=== PATIENT | male | born 2000 | race American Indian/Alaskan Native ===

== ENCOUNTER 2020-10-17 12:33 | Emergency (ER) | payer MEDICAID, SELFPAY ==
[2020-10-17 12:38] VITALS: BP 118/81; PULSE 66; RESP 18; TEMP 36.6; O2SAT 97; BMI 19.2
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
--- NOTE | 2020-10-17 12:54 | XR_ITS ---
EXAMINATION: XR RIBS, RIGHT CLINICAL INFORMATION: Pain. Trauma. COMPARISON: None TECHNIQUE: 2 views of the right ribs and one view of the chest were obtained. FINDINGS: The cardiac and mediastinal contours are normal. The lungs are clear. There is no pleural effusion or pneumothorax. No rib fracture is seen. There is mild curvature of the lower thoracic and upper lumbar spine to the left. XR/XR ribs RT min 3V w CXR1V IMPRESSION: No evidence for acute disease in the chest. No rib fracture seen.
[2020-10-17] MEDS: Magnesium Hydrox/Alum Hydrox 30 ML ORAL.SUSP PO (13:02)
--- NOTE | 2020-10-17 13:04 | PC.NURSE ---
pt seen by provider, medicated per emar, tolerating po w/o issue. changed into hospital attire awaiting xray.
--- NOTE | 2020-10-17 14:19 | MHC.CARE ---
CARE Team met with patient in C room 1 regarding homelessness/resources. He reported having recently moving back to [facility] from [place], spent two nights in a hotel, has no money to stay another night, no local family or friends. Patient is already well connected to [facility] in [place], told provider that he does not want to go to a [place], prefers to be outside. Patient said he has an intake at [facility] tomorrow and waiting for [place] psychiatry appointment, stated he will self present to [facility] in [place] where he may be able to stay the night, has been there before. Patient denied being in a mental health crisis at this time, gave # for [facility]. Gave information about housing resources (he was familiar with most) and a local [place] facility list. Provider updated
[2020-10-17 14:58] VITALS: BP 122/78; PULSE 72; RESP 14; TEMP 36.6; O2SAT 100
--- NOTE | 2020-10-17 15:36 | PC.NURSE ---
pt very resistant to being discharged, provider at bedside to explain results of workup. pt complains i still cant walk, i didnt even get one thing addressed today . this rn reeducating pt on process of evaluation and results, provider at bedside att. after conversation, plan for basic blood labs and ua spec. pt also sts its painful and i cant swallow anything, i havent eaten in weeks . pt asked about the small portion of sandwich remaining in room, this rn inquiring where the sandwich went if he cannot swallow. pt sts that hes been trying . ambulatory in room w steady gait to void in urinal.
[2020-10-17 15:59] LABS: Basophils Percent Auto 0.4 % (0-2); Eosinophils Absolute Auto 0.1 X10*3/uL (0.0-0.4); Eosinophils Percent Auto 1.3 % (0-4); Hematocrit 52.2 % (42-52); Hemoglobin 18.2 g/dl (14.0-18.0); Imm Gran Abs Auto 0.01 X10*3/uL (0.00-0.03); Imm Gran Pct Auto 0.1 % (0.0-0.4); Lymphocytes Absolute Auto 2.2 X10*3/uL (1.2-4.9); Lymphocytes Percent Auto 31.6 % (20-40); Mean Corpuscular HGB Conc 34.9 g/dl (31.0-36.0); Mean Corpuscular Hemoglobin 30.1 pg (27.0-33.0); Mean Corpuscular Volume 86.3 fL (80-98); Mean Platelet Volume 9.6 fL (9.4-12.4); Monocytes Absolute Auto 0.7 X10*3/uL (0.1-1.2); Monocytes Percent Auto 9.3 % (2-11); Neutrophils Absolute Auto 4.1 X10*3/uL (2.0-8.3); Neutrophils Percent Auto 57.3 % (45-73); Platelet Count 257 X10*3/uL (160-400); Red Blood Count 6.05 X10*6/uL (4.60-5.80); Red Cell Distribution Width 12.7 % (11.0-16.0); White Blood Count 7.1 X10*3/uL (4.8-10.8)
[2020-10-17 16:00] LABS: MANUAL DIFF FLAG NO
--- NOTE | 2020-10-17 16:15 | PC.NURSE ---
per clinic charge nurse, pt has been calling 911 and requesting a new doctor as evidenced by [facility] calling and asking to have the pt stop calling 911. this rn, clinic charge nurse and chris log rider at bedside to speak w pt, security stand by. pt sts he has not recieved any help with anything at all . pt educated about test done today, necessity of requested services on emergent basis. pt had blood work and had attempted ua spec. pt sts he cannot walk but has been seen by multiple staff ambulating w steady gait. pt offered discharge paperwork and instructions, when given privacy to get changed pt called 911 again. security at bedside to assist in departing discharged pt. pt very resistant and physically making effort to not leave. pt assisted to wheelchair and brought to ed entrance.
[2020-10-17 16:34] LABS: Alanine Aminotransferase 16 U/L (0-40); Albumin Level 5.5 g/dL (3.5-5.0); Alkaline Phosphatase 63 U/L (39-117); Anion Gap 12 (12-20); Aspartate Amino Transferase 25 U/L (5-37); Bilirubin Total 1.1 mg/dL (0.0-1.0); Blood Urea Nitrogen 19 mg/dL (9-16); Calcium 10.4 mg/dL (8.4-10.2); Carbon Dioxide 30 mmol/L (22-29); Chloride 99 mmol/L (96-108); Creatinine Clr Calc Pharmacy 80.5; Estimated Glomerular Filt Rate > 60; Glucose Random 97 mg/dL (60-115); Potassium 3.9 mmol/l (3.3-5.1); Sodium 137 mmol/L (135-145); Total Protein 8.7 g/dL (6.5-8.0)
== END 2020-10-17 16:28 | disposition home or self-care (01) ==
PROVIDERS: Nurse Practitioner Primary Care; Emergency Provider Emergency Medicine Emergency Medical Services
DX: S20.211A Contusion of right front wall of thorax, initial encounter (principal); R07.89 Other chest pain; W01.0XXA Fall on same level from slipping, tripping and stumbling without subsequent striking against object, initial encounter; Y93.9 Activity, unspecified; Y92.9 Unspecified place or not applicable; Y99.9 Unspecified external cause status; F17.200 Nicotine dependence, unspecified, uncomplicated; Z71.6 Tobacco abuse counseling
CPT/HCPCS: 36415; 71101; 80053; 85025; 99284

== ENCOUNTER 2023-07-15 03:30 | Emergency (ER) | payer MEDICAID, SELFPAY ==
[2023-07-15 03:33] VITALS: BP 116/60; BP 120/83; PULSE 66; RESP 18; TEMP 36.4; O2SAT 98; O2SAT 99; BMI 22.9
--- NOTE | 2023-07-15 03:45 | PC.NURSE ---
Pt A&Ox4, reports 7/10 chronic left hand pain. Reports walking for four hours prior to arrival, causing SOB and hand pain. States I am homeless, its cold outside and I have to carry a tote and this bag around . Belongings placed in decon by security. Pt speaking in full sentences, equal and non labored breathing, SpO2 98% on RA, RR 18, lung sounds clear. No apparent distress. Pt aware of plan.
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
[2023-07-15 05:57] VITALS: BP 113/80; PULSE 61; RESP 16; TEMP 36.4; O2SAT 99
--- NOTE | 2023-07-15 07:31 | MHC.EDTECH ---
Breakfast was given to the patient and Due to his Diet, he didn't/couldn't eat anything. With Nurse we went to his belongings (Ollie) and gathered his Lunch box that contain hid food.
--- NOTE | 2023-07-15 07:43 | PC.NURSE ---
pt requesting varnisher and lunch bag from [facility]; obtained with security.
--- NOTE | 2023-07-15 11:15 | MHC.CM.ED ---
Received case management consult overnight. Patient is looking for usp and transportation help. Met with patient. Group Home and community resources provided to patient. Jose arrange for patient to go to work at [employer] in [place]. Patient, Yvette WHALEY and Stephanie TROY aware. Continue to monitor for d/c needs.
== END 2023-07-15 11:16 | disposition home or self-care (01) ==
PROVIDERS: Emergency Provider Emergency Medicine
DX: R53.1 Weakness (principal); Z72.89 Other problems related to lifestyle; Z60.8 Other problems related to social environment; Z59.00 Homelessness unspecified; F41.9 Anxiety disorder, unspecified; F32.A Depression, unspecified; F43.10 Post-traumatic stress disorder, unspecified; F12.90 Cannabis use, unspecified, uncomplicated
CPT/HCPCS: 99284

== ENCOUNTER 2023-08-19 15:15 | Outpatient (REF) | payer MEDICAID, SELFPAY ==
[2023-08-20 07:21] LABS: HIV AB/AG Nonreactive (Nonreactive); HIV Num 1 0.05 S/CO (0.00-0.99); ~HepC Num1 0.06 S/CO (0.00-0.79); ~Hepatitis C Antibody Nonreactive (Nonreactive)
[2023-08-20 07:41] LABS: Syphilis Screen Reactive (Nonreactive)
[2023-08-26 15:25] LABS: RPR Quantitative Non-Reactive (Nonreactive)
[2023-08-26 15:26] LABS: T.Pallidum Particle Agg Test Reactive (Nonreactive)
== END 2023-08-19 15:16 | disposition home or self-care (01) ==
LOC: HO.HHCL 15:15
PROVIDERS: Visit Provider Nurse Practitioner Primary Care
DX: Z11.3 Encounter for screening for infections with a predominantly sexual mode of transmission (principal)
CPT/HCPCS: 36415; 86592; 86780; 86803; 87389

== ENCOUNTER 2025-07-11 01:22 | Emergency (ER) | payer OTHER, SELFPAY ==
--- OUTSIDE RECORDS SUMMARY | 2025-07-10 16:27 | XMS_ITS | Encounter Summary ---
Author Organization [employer] [facility] Address [address] [place] [address] Care Team Providers Care Drawing Tender Name Role Phone Physician, Pcp Unknown Primary Care Provider Maritza vailable Reason for Visit * Reason Comments Headache Encounter Details Date Type Department Care Team ([facility] st Contact Info) Description 07/10/2025 4:27 PM EDT - 07/10/2025 6:55 PM EDT Emergency [facility] Emergency [address] [place] [address] Faraz Stroud MD [address] [facility] [address] [place] [address] Syncope and collapse (Primary Dx); [...] your primary care provider or at the [place] public health department. While you are taking these antibiotics you should not be having sexual intercourse as you may have a sexual transmitted infection. You should notify all of your sexual partners that they need to be tested and possibly treated for sexually transmitted infection. I recommend you use condoms to reduceyour risk of obtaining a sexually transmitted infection. [place] is a self reporting state to the registry of motor vehicles, you should not be driving or operating heavy machinery until you are cleared by your primary care provider. * Attachments The following attachments cannot be sent through Care Everywhere. * Antibiotics: General Info (Polish) documented in this encounter Medications at Time [...] iron, magnesium, selenium, zinc). 14 each 07/10/2025 documented in this encounter Discharge Disposition Disposition [...] of Systems Physical Exam ED Triage Vitals [07/10/25 1608] Temp Heart Rate Resp BP -- [...] MDM ED Course as of 07/11/25 0020 Tue Jul 10, 2025 183 EKG sinus rhythm with shortened HI interval, 78 bpm, HI interval 96 MS, QTc 442 MS, normal [...] be discharged home. I discussed the plan for outpatient doxycycline for STI treatment, refill of his epinephrine autoinjector, I encouraged himto come back to the ER for any [...] another syncopal episode while walking to the [facility]. Prior to the episode patient statedhe felt hot and sweaty. This is consistent with a vasovagal episode. EKG did show a shortened HI interval but no delta wave, no Brugada [...] loss of conscious to the registry of HASH [place] and then he should not be driving [...] Upcoming Encounters Date Type Department Care Team (Late st Contact Info) Description 07/18/2025 7:00 AM EDT Evaluation [address] [address] Jim Tineo, PT Pending Results Name Type Priority Associated Diagnoses Date /Time Chlamydia trachomatis and Neisseria gonorrhoeae molecular study Microbiology STAT 07/10/2025 5:30 PM EDT Rapid plasma reagin with reflex to titer Lab STAT 07/10/2025 5:38 PM EDT Scheduled Orders Name Type Priority Associated Diagnoses Orde r Schedule Chlamydia trachomatis and Neisseria gonorrhoeae molecular study Microbiology STAT STAT for 1 Occurrences starting 07/10/2025 until 07/10/2025 Rapid plasma reagin with reflex to titer Lab Routine Once for 1 Occurrences starting 07/10/2025 until 07/10/2025 documented as of this encounter Procedures Procedure Name Priority Date/Time Associated Diagnosis Comments ECG 12-LEAD STAT 07/10/2025 6:25 PM EDT TREPONEMA PALLIDUM ANTIBODY WITH REFLEX TO RPR AND PARTICLE AGGLUTINATION STAT 07/10/2025 5:38 PM EDT MAGNESIUM STAT Add-on 07/10/2025 5:38 PM EDT BASIC METABOLIC PANEL STAT Add-on 07/10/2025 5:38 PM EDT [id number], RSV, FLU A AND B QUALITATIVE RT-PCR, INTERNAL LAB STAT 07/10/2025 5:30 PM EDT documented in this encounter Results * 12-Lead ECG (07/10/2025 6:25 PM EDT) Pathologist [facility] Ventricular Rate ECG 78 BPM GEMUSE Atrial Rate 78 BPM GEMUSE P-R Interval 96 ms GEMUSE QRS Duration 92 ms GEMUSE Q-T Interval 388 ms GEMUSE QTc 442 ms GEMUSE P Wave [place] 33 degrees GEMUSE R [place] 56 degrees GEMUSE T [place] 51 degrees GEMUSE ECG Interpretation Poor data quality, interpretation may be adversely affected Sinus rhythm with short HI Minimal voltage criteria for LVH, may be normal variant Borderline ECG No previous ECGs available Confirmed by Luis Felipe GRACIA YUFENG ([id number]) on 07/10/2025 7:42:24 PM GEMUSE 07/10/2025 6:25 PM EDT 07/10/2025 7:42 PM EDT us Faraz Stroud MD ECG ORDERABLES Final Result Performing Organization Address City/[facility]/ZIP Co de Phone Number GEMUSE * Magnesium (07/10/2025 5:38 PM EDT) [facility] Magnesium 2.1 1.9 - 2.6 mg/dL LAB CHEMISTRY METHOD 07/10/2025 7:06 PM EDT [facility] Blood Venous blood specimen / Unknown Venipuncture / Unknown 07/10/2025 5:38 PM EDT 07/10/2025 6:00 PM EDT us Faraz Stroud MD LAB BLOOD ORDERABLES Final Resul t [facility] [address] [place] [address], [place] [phone] * Basic Metabolic Panel (BMP) (07/10/2025 5:38 PM EDT) [facility] Sodium 136 133 - 145 mmol/L LAB CHEMISTRY METHOD 07/10/2025 7:06 PM EDT [facility] Potassium 3.9 3.5 - 5.5 mmol/L LAB CHEMISTRY METHOD 07/10/2025 7:06 PM [facility] Chloride 105 96 - 110 mmol/L LAB CHEMISTRY METHOD 07/10/2025 7:06 PM [facility] CO2 25 21 - 32 mmol/L LAB CHEMISTRY METHOD 07/10/2025 7:06 PM [facility] Anion Gap 6 3 - 11 LAB CHEMISTRY METHOD 07/10/2025 7:06 PM [facility] Glucose 87 70 - 100 mg/dL LAB CHEMISTRY METHOD 07/10/2025 7:06 PM [facility] BUN 13 5 - 25 mg/dL LAB CHEMISTRY METHOD 07/10/2025 7:06 PM [facility] Creatinine 1.18 0.70 - 1.30 mg/dL LAB CHEMISTRY METHOD 07/10/2025 7:06 PM [facility] eGFR 87 >=60 mL/min/1. 73m2 LAB CHEMISTRY METHOD 07/10/2025 7:06 PM [facility] Comment:Calculation based on the Chronic Kidney Disease Epidemiology Collaboration (CKD-EPI) equation refit without adjustment for race. BUN/Creatinine Ratio 11.0 LAB CHEMISTRY METHOD 07/10/2025 7:06 PM [facility] Calcium 9.7 8.5 - 10.5 mg/dL LAB CHEMISTRY METHOD 07/10/2025 7:06 PM [facility] Blood Venous blood specimen / Unknown Venipuncture / Unknown 07/10/2025 5:38 PM EDT 07/10/2025 6:00 PM EDT us Faraz Stroud MD LAB BLOOD ORDERABLES Final Resul t [facility] [address] [place] [address], [place] [phone] * (ABNORMAL) Treponema pallidum antibody with reflex to RPR and particle agglutination (07/10/2025 5:38 PM EDT) Pathologist [facility] T. Pallidum Antibodies Positive( A) Negative LAB CHEMISTRY METHOD 07/10/2025 6:55 PM EDT [facility] Blood Venous blood specimen / Unknown Venipuncture / Unknown 07/10/2025 5:38 PM EDT 07/10/2025 6:00 PM EDT us Faraz Stroud MD LAB BLOOD ORDERABLES Final Resul t [facility] [address] [place] [address], * [id number], RSV, Influenza A and B qualitative RT-PCR (07/10/2025 5:30 PM EDT) [facility] Influenza A PCR Not Detected Not Detected LAB MICROBIOLOGY METHOD 07/10/2025 6:21 PM EDT [facility] Influenza B PCR Not Detected Not Detected LAB MICROBIOLOGY METHOD 07/10/2025 6:21 PM EDT [facility] RSV PCR Not Detected Not Detected LAB MICROBIOLOGY METHOD 07/10/2025 6:21 PM EDT [facility] SARS COV-2 Not Detected Not Detected LAB MICROBIOLOGY METHOD 07/10/2025 6:21 PM EDT [facility] Swab Nasopharyngeal structure / Unknown Non-blood Collection / Unknown 07/10/2025 5:30 PM EDT 07/10/2025 5:38 PM EDT Narrative [facility] - 07/10/2025 6:21 PM EDT Disclaimer: Testing was performed using the [employer] GeneXpert Xpress SARS-CoV-2 _Flu_RSV PLUS PCR assay. [...] for Healthcare providers can be found at https://www.fda.gov/media/062044/download. Fact sheet for Healthcare patients can be found at https://www.fda.gov/media/577650/download. us Faraz Stroud MD LAB MICROBIOLOGY - GENERAL ORDER CASEY Final Result [facility] ([facility]) [facility] [address] [place] [address], documented in this encounter Visit Diagnoses Diagnosis Syncope and collapse- Primary Viral illness Unspecified viral infection, in conditions classified elsewhere and of unspecified site STI (sexually transmitted infection) Unspecified venereal disease documented in this encounter Administered Medications Inactive [...] documented as of this encounter Care Teams Drawing Tender Relationship Specialty Start Date End Date Physician, Pcp Unknown PCP - General 07/10/25 documented as of this encounter
--- OUTSIDE RECORDS SUMMARY | 2025-07-11 00:30 | XMS_ITS | Encounter Summary ---
Author Organization [employer] [facility] Address [address] [place] [address] Care Team Providers Care Csr Retail Name Role Phone Physician, Pcp Unknown Primary Care Provider Maritza vailable Reason for Visit * Reason Comments Abnormal labs Encounter Details Date Type Department Care Team ([facility] st Contact Info) Description 07/11/2025 12:30 AM EDT - 07/11/2025 1:09 AM EDT Emergency [facility] Emergency [address] [place] [address] Faraz Stroud MD [address] [facility] [address] [place] [address] Discharge Disposition: Home or Self Care Social History Tobacco Use Types Packs/Day Years [...] Sign Reading Time Taken Comments Blood Pressure 150/97 07/11/2025 12:35 AM EDT Pulse 78 07/11/2025 12:35 AM EDT Temperature 36.7 C (98 F) 07/11/2025 12:35 AM EDT Respiratory Rate 16 07/11/2025 12:35 AM EDT Oxygen Saturation 97% 07/11/2025 12:35 AM EDT Inhaled Oxygen Concentration - - Weight - - Height - - Body Mass Index - - documented in this encounter Medications at Time of Discharge cyclobenzaprine (FLEXERIL) 10 mg tabletIndications:A cute right-sided thoracic back pain Take 1 tablet (10 mg total) by mouth at bedtime as needed for muscle spasms. 30 tablet 05/31/2025 5 doxycycline (VIBRAMYCIN) 100 mg capsule Take 1 [...] for nausea or vomiting. 8 tablet 03/23/2024 documented as of this encounter Discharge Disposition Disposition Code Departure Means Destination Home or Self Care documented in this encounter Progress Notes * Marry Ortiz RN - 07/11/2025 12:37 AM EDT Patient upset that he was called back for treatment stating I havent even slept . Patient refused a temp and walked out of the ER * Marry Ortiz RN - 07/11/2025 12:32 AM EDT Patient called back for abnormal results of an STD results documented in this encounter Plan of Treatment Upcoming Encounters Date Type Department Care Team (Late st Contact Info) Description 07/18/2025 7:00 AM EDT Evaluation [address] [address] Jim Tineo, PT documented as of this encounter Visit Diagnoses Not on filedocumented in this encounter Active and Recently Administered Medications Times are shown in EDT. Scheduled Medication Order 07/09/2025 07/10/2025 07/11/2025 penicillin G benzathine (BICILLIN-LA) IM injection 2.4 Million Units 2.4 Million Units, intramuscular, Once, On Wed07/11/25 at 0140, For 1 dose, For IM injection ONLY. Not to exceed 4 mL in one site of administration. CAUTION: For intramuscular injection ONLY. Complex administration instructions, see package insert or drug reference link., Indication: Sexually Transmitted Infection 0140 (Due) documented in this encounter Orders Medications Ordered That Jones ht Not Have Been Administered Count Last Ordered Date First Ordered Date penicillin G benzathine (BIC ILLIN-LA) IM injection 2.4 Million Units 1 07/11/2025 documented in this encounter Care Teams Csr Retail Relationship Specialty Start Date End Date Physician, Pcp Unknown PCP - General 07/10/25 documented as of this encounter
[2025-07-11 01:23] VITALS: BP 143/103; PULSE 82; RESP 16; TEMP 36.6; O2SAT 98; BMI 17.1
--- OUTSIDE RECORDS SUMMARY | 2025-07-11 01:42 | XMS_ITS | Clinical Summary ---
Author Organization [employer] Address [address] [place] [address] Care Team Providers Care Cio Name Role Phone Mini Encarnacion GELA Primary Care Provider [phone] Active Problems Problem Noted Date Diagnosed Date Hallucinations 09/07/2023 Homelessness 08/24/2023 Gastroesophageal reflux disease 08/17/2023 08/17/2023 Housing lack 08/17/2023 08/17/2023 Anxiety 06/27/2021 08/17/2023 Depressive disorder 06/27/2021 08/17/2023 Assessment & Plan (09/07/2023 8:19 AM EST): Assessment: Patient experiencing multiple symptoms that require further exploration. No risk for self-harm, SI, or HI. Reason for visit was to follow-up and assess current symptoms. A OP therapy referral was made to [place] on 08/23/2023. At this time Fidencio Huitron meets criteria for Visit Diagnoses: Problem List Items Addressed This Visit Other Anxiety Depressive disorder Housing lack Homelessness Hallucinations Patient ready to address current needs Yes Strengths include patient is in preparation stage PLAN: 1. Follow up with [facility]: Recommended for follow-up: As needed 2. Patient goal is obtain stable housing and improve his mental health 3. Behavioral Recommendations a. Engage in OP therapy once established b. Monitor symptoms c. Reach out to [facility] for additional support as needed Assessment & Plan (08/31/2023 8:11 AM EDT): Assessment: Patient presents with symptoms of depression as well as various other symptoms which at this time need further exploration. No risk for self-harm, SI, or HI. Reason for visit was to provided support for patient and connect him with services. OP therapy and psychopharmacology referral will be completed. At this time Fidencio Huitron meets criteria for Visit Diagnoses: Problem List Items Addressed This Visit Other Anxiety Relevant Orders Referral to Behavioral Health Depressive disorder - Primary Relevant Orders Referral to Behavioral Health Housing lack Homelessness Patient ready to address current needs Yes Strengths include resilience and being in preparation stage. PLAN: 1. Follow up with [facility]: Recommended for follow-up: Scheduled 2. Patient goal is to be connected with services/resources that will address all needs 3. Behavioral Recommendations a. Attend follow-up appointment b. Reach out to [facility] for additional support Immunizations Immunization Administration Dates Next Due DTaP, 5 pertussis antigens 02/15/2002,,1998,1998,0 1998 HPV, Quadrivalent 09/05/2014,01/25/2014,12/19/19 14 Hep B, Adolescent or Pediatric 1998,1997,1998 Hib (PRP-T) 05/28/1999,1998,1998 ,1998 IPV 02/15/2002,05/28/1999,1998 ,1998 Influenza, IIV3, injectable 09/05/2014 MMR 02/15/2002,03/27/1999 Meningococcal MCV4O 01/25/2014,01/23/2011 Tdap 03/10/2019,11/08/2008 Varicella 01/23/2011,03/27/1999 Social History Tobacco Use Types Packs/Day Years Used Date Smoking Tobacco: Never Smokeless Tobacco: Never Tobacco Cessation:Counseling Given: Not Answered Depression Answer Date Recorded Patient Health Questionnaire-9 Score 12 08/19/2023 Patient Health Questionnaire-9 Score 12 08/19/2023 Last PHQ-9: Questionnaire Data Not on file 1 Housing Stability Answer Date Recorded What is your housing situation today? I do not have housing (Staying with others, in a hotel, in a long-term, living outside on the street, on a beach, in a car, or in a park 08/19/[address] you li ve. Do you have problems with any of the following? None of the above 08/19/2023 Food Insecurity Answer Date Recorded Within the past 12 months, y ou worried that your food would run out before you got money to buy more: Sometimes True 2022 Within the past 12 months,th e food you bought just didn't last and you didn't have enough money to get more: Sometimes True 08/19/2023 Depression Answer Date Recorded Patient Health Questionnaire-2 Score 2 08/19/2023 Sex and Gender Information Value Date Recorded Sex Assigned at Male 08/31/2022 10:16 AM EDT Legal Sex Male 10:16 AM EDT Gender Identity Male 08/31/2022 10:16 AM EDT Sexual Orientation Straight 08/31/2022 10 :16 AM EDT Last Filed Vital Signs Vital Sign Reading Time Taken Comments Blood Pressure 119/75 08/19/2023 1:14 PM EDT Pulse 64 08/19/2023 1:14 PM EDT Temperature - - Respiratory Rate 14 08/19/2023 1:14 PM EDT Oxygen Saturation 98% 08/19/2023 1:14 PM EDT Inhaled Oxygen Concentration - - Weight 55.6 kg (122 lb 9.6 oz) 08/19/2023 1:14 P M EDT Height 175.3 cm (5' 9 ) 08/19/2023 1:14 PM EDT Body Mass Index 18.1 08/19/2023 1:14 PM EDT Plan of Treatment Health Maintenance Due Date Last Done Comments SDOH Screening 1998 Disability Screening 1998 Alcohol/Substance Use Screening 2010 Family Planning (PISQ) 2013 Depression Monitoring 02/18/2024 08/19/2023, 023 Tobacco Screening 08/19/2024 08/19/2023 COVID-19 Vaccine ( season) 2025 Influenza Vaccine (#1) 2025 09/05/2014 DTaP/Tdap/Td Vaccines (8 - Td or Tdap) 03/10/2029 03/10/2019, 11/08/2008, 02/15/2002, Additional history exists Zoster Vaccines (1 of 2) 01/25/2048 RSV Patients and Patients Aged 60 years or older (1 - 1-dose 75+ series) 2073 Hepatitis B Vaccines Completed 1998, 1998, 1998 HIB Vaccines Completed 05/28/1999, 11/1997, 1998, Additional history exists IPV Vaccines Completed 02/15/2002, 05/02, 1998, Additional history exists Meningococcal Vaccine Completed 01/25/2014, 011 HPV Vaccines Completed 09/05/2014, 12/31, 12/19/2013 Hepatitis C Screening Completed 08/19/2023, 020 HIV Screening Completed 12/10/2023, 08/01, 06/23/2022, Additional history exists Hepatitis A Vaccines Aged Out No long er eligible based on patient's age to complete this topic Meningococcal B Vaccine Aged Out No l onger eligible based on patient's age to complete this topic Pneumococcal Vaccine: Pediatrics (0 to 5 Years) and At-Risk Patients (6 to 49) Years Aged Out No longer eligible based on patient's age to complete this topic RSV under 20 months Aged Out No longe r eligible based on patient's age to complete this topic Rotavirus Vaccines Aged Out No longer eligible based on patient's age to complete this topic Procedures Procedure Name Priority Date/Time Associated Diagnosis Comments HEPATITIS C AB W/REFL TO HCV RNA, QN, PCR Routine 08/19/2023 3:20 PM EDT Routine screening for STI (sexually transmitted infection) HIV ANTIBODY/ANTIGEN ([place] DPH) Routine 08/19/2023 3:20 PM EDT from Last 3 Months or Most Recently Relevant to Health Maintenance Results * HIV Ab/Ag ([place] D[facility]) (08/19/2023 3:20 PM EDT) HIV AB/AG Nonreactive Nonreactive [facility] Comment:HIV-1 p24 Ag and/or HIV-1/HIV-2 Ab not detected.A test result that is nonreactive does not exclude thepossibility of exposure to or infection with HIV-1 and/orHIV-2. Nonreactive results in this assay for individualswith prior exposure to HIV-1 and/or HIV-2 may be due toantigen and antibody levels that are below the limit ofdetection of this assay.The [employer] HIV Ag/Ab Combo assay result andsupplemental assay results should be interpreted inconjunction with the patient's clinical presentation,history and other laboratory results. If the results areinconsistent with clinical evidence, additional testing issuggested to confirm the result. 08/19/2023 3:20 PM EDT 08/19/2023 3:54 PM EDT Mini Encarnacion [facility] BLOOD ORDERABLES Final Resul t Performing Organization Address [facility] Co de Phone Number [facility] [address] [place] [address] [phone] * Hepatitis C Antibody with Reflex to HCV, RNA, Quantitative, Real-Time PCR (08/19/2023 3:20 PM EDT) Hepatitis C Antibody Nonreactive Nonreactive [facility] Comment:Antibodies to HCV no t detected; does not exclude early acuteHCV infection. Blood Venous blood specimen / Unknown 08/19/2023 3:20 PM EDT 08/19/2023 3:54 PM EDT Mini Encarnacion [facility] BLOOD ORDERABLES Final Resul t Performing Organization Address [facility] Co de Phone Number [facility] [address] [place] [phone] from Last 3 Months or Most Recently Relevant to Health Maintenance [facility] Care Teams Cio Relationship Specialty Start Date End Date Mini Encarnacion ANP [address] [place] [phone] PCP - General Family Medicine 07/19/23
--- OUTSIDE RECORDS SUMMARY | 2025-07-11 01:42 | XMS_ITS | Encounter Summary ---
Author Organization Formerly [facility] Address [address] [place] [address] Care Team Providers Care Supervisor Joiners Name Role Phone Stacy Tello Primary Care Provider [phone] Evelia AldrichW Unavailable [phone] Pcp, No Primary Care Provider UnavailJayna Gallegos LPC Unavailable Encounter Details Date Type Department Care Team (Late st Contact Info) Description 01/27/2019 Scanned Document [address] [phone] Provider, Ry, [address] [place] [address] Social History Tobacco Use Types Packs/Day Years Used Date Smoking Tobacco: Never Smokeless Tobacco: Never Alcohol Use Standard Drinks/Week Comments No 0 (1 standard drink = 0.6 oz pur e alcohol) AUDIT-C Answer Date Recorded Frequency of Alcohol Consumption Never 11/02/2018 Average Number of Drinks Not on file 019 Frequency of Binge Drinking Not on file 12/2018 Sex and Gender Information Value Date Recorded Sex Assigned at Male 03/27/2023 2:11 AM EDT Legal Sex Male 12:26 PM EST Gender Identity Male 03/27/2023 2:11 AM EDT Sexual Orientation Heterosexual (straight) 03/27 2:11 AM EDT documented as of this encounter Plan of Treatment Not on file documented as of this encounter Visit Diagnoses Not on filedocumented in this encounter Care Teams Supervisor Joiners Relationship Specialty Start Date End Date Stacy Tello PA [address] [facility] [address] [place] [address] PCP - General Internal Medicine 01/24/19 11/03/19 Pcp, No PCP - General General Medicine 11/19/19 Evelia Aldrich LCSW Needs valid address Investigation Lieutenant Social Work 01/26/19 02/09/22 Jayna Rosario LPC [address] [place] [address] Investigation Lieutenant Clinical Social Work 10/06/24 documented as of this encounter
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
--- OUTSIDE RECORDS SUMMARY | 2025-07-11 01:42 | XMS_ITS | Clinical Summary ---
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 Name Role Phone Physician, Pcp Unknown Primary Care Provider Maritza vailable Allergies Active Allergy Reactions Criticality Noted Date Comments Apple 03/23/2024 Aspirin 03/23/2024 Does not know [place] And Derivatives 03/23/2024 Acetaminophen-Caffeine 03/23/2024 Pain and bleeding Ibuprofen 03/23/2024 States pain and bleeding Milk Containing Products (Dairy) 03/23/2024 Peas 07/10/2025 Pork Derived (Porcine) 03/23/2024 Medications ondansetron ODT (ZOFRAN-ODT) 8 mg disintegrating tabletIndications :Nausea Dissolve 1 tablet (8 mg total) on top of the tongue every 8 (eight) hours if needed for nausea or vomiting. 8 tablet 03/23/20 24 Active cyclobenzaprine (FLEXERIL) 10 mg tabletIndications :Acute right-sided thoracic back pain Take 1 tablet (10 mg total) by mouth at bedtime as needed for muscle spasms. 30 tablet 05/31/20 25 2024 Active EPINEPHrine (EPIPEN) 0.3 mg/0.3 mL injection Inject 0.3 mL (0.3 mg total) into the thigh if needed for anaphylaxis. 1 each 07/10/20 25 Active doxycycline (VIBRAMYCIN) 100 mg capsule Take 1 capsule (100 mg total) by mouth 2 (two) times a day for 14 days. Take with at least 8 ounces (large glass) of water, do not lie down for 30 minutes after. Administer 2 hours before or after multivitamins , antacids, or other products containing polyvalent cations (i.e., calcium, iron, magnesium, selenium, zinc). 14 each 07/11/20 25 2024 Active doxycycline (VIBRAMYCIN) 100 mg capsule Take 1 capsule (100 mg total) by mouth 2 (two) times a day for 7 days. Take with at least 8 ounces (large glass) of water, do not lie down for 30 minutes after. Administer 2 hours before or after multivitamins , antacids, or other products containing polyvalent cations (i.e., calcium, iron, magnesium, selenium, zinc). 14 each 07/10/20 25 2024 Discontinued Encounters Date Type Department Care Team Description 07/11/2025 12:30 AM EDT - 07/11/2025 1:09 AM EDT [facility] Emergency [address] [place] [phone] Faraz Stroud MD Discharge Disposition: Home or Self Care 07/10/2025 4:27 PM EDT - 07/10/2025 6:[address] [facility] Emergency [address] [place] [phone] Faraz Stroud MD Syncope and collapse (Primary Dx); Viral illness; STI (sexually transmitted infection) Discharge Disposition: Left Against Medical Advice 05/31/2025 1:30 PM EDT Office Visit Walk[facility]In [facility] - [address] [phone] Erendira Cook NP Acute right-sided thoracic back pain (Primary Dx) from Last 3 Months Social History Tobacco Use Types Packs/Day Years Used Date Smoking Tobacco: Some Days Cigarettes Smokeless Tobacco: Never Tobacco Cessation:Ready to Q uit: Not Asked; Counseling Given: Not Answered Comments:Smokes socially Sex and Gender Information Value Date Recorded Sex Assigned at Not on file Legal Sex Male 12:25 PM EST Gender Identity Not on file Sexual Orientation Not on file Obstetrics History Last Filed Vital Signs Vital Sign Reading [...] Mass Index 16.64 07/10/2025 4:08 PM EDT Plan of Treatment Upcoming Encounters Date Type Department Care Team (Late st Contact Info) Description 07/18/2025 7:00 AM EDT Evaluation [address] [phone] Jim Tineo, PT Health Maintenance Due Date Last Done Comments Pneumococcal Vaccine: Pediatrics (0 to 5 Years) and At-Risk Patients (6 to 49 Years) (1 of 2 - PCV) 2017 HIV Screening 09/29/2022 Social Influencers of Health Screening 09/29/2022 Depression Screening 11/01/2024 COVID-19 Vaccine (3 - season) 2025 01/21/2021, 12/24/2020 Influenza Vaccine (#1) 2025 09/05/2014 Cholesterol Screening (Lipid Panel) 06/23/2027 06/23/2022 DTaP,Tdap,and Td Vaccines (8 - Td or Tdap) 03/10/2029 03/10/2019, 11/08/2008, 02/15/2002, Additional history exists Hepatitis B Vaccines Completed 1998, 1998, 1998 HIB Vaccines Completed 05/28/1999, 11/1997, 1998, Additional history exists IPV Vaccines Completed 02/15/2002, 05/02, 1998, Additional history exists MMR Vaccines Completed 02/15/2002, 03/27/1999 Varicella Vaccines Completed 01/23/2011, 03/27/1999 Meningococcal ACWY Vaccine Completed 01/25/2014, HPV Vaccines Completed 09/05/2014, 12/31, 12/19/2013 Hepatitis C Screening Completed 08/19/2023, 022 Hepatitis A Vaccines Aged Out No long er eligible based on patient's age to complete this topic Meningococcal B Vaccine Aged Out No l onger eligible based on patient's age to complete this topic RSV Immunization Patients Under 20 months Aged Out No longer eligible based on patient's age to complete this topic Procedures Procedure Name Priority Date/Time Associated Diagnosis Comments ECG 12-LEAD STAT 07/10/2025 6:25 PM EDT MAGNESIUM STAT Add-on 07/10/2025 5:38 PM EDT BASIC METABOLIC PANEL STAT Add-on 07/10/2025 5:38 PM EDT TREPONEMA PALLIDUM ANTIBODY WITH REFLEX TO RPR AND PARTICLE AGGLUTINATION STAT 07/10/2025 5:38 PM EDT [id number], RSV, FLU A AND B QUALITATIVE RT-PCR, INTERNAL LAB STAT 07/10/2025 5:30 PM EDT from Last 3 Months Results * 12-Lead ECG (07/10/2025 6:25 PM EDT) Ventricular Rate ECG 78 BPM GEMUSE Atrial Rate 78 BPM GEMUSE P-R Interval 96 ms GEMUSE QRS Duration 92 ms GEMUSE Q-T Interval 388 ms GEMUSE QTc 442 ms GEMUSE P Wave [place] 33 degrees GEMUSE R [place] 56 degrees GEMUSE T [place] 51 degrees GEMUSE ECG Interpretation Poor data quality, interpretation may be adversely affected Sinus rhythm with short FL Minimal voltage criteria for LVH, may be normal variant Borderline ECG No previous ECGs available Confirmed by Luis Felipe GRACIA YUFENG ([id number]) on 07/10/2025 7:42:24 PM GEMUSE 07/10/2025 6:25 PM EDT 07/10/2025 7:42 PM EDT us Faraz Stroud MD ECG ORDERABLES Final Result GEMUSE * (ABNORMAL) Treponema pallidum antibody with reflex to RPR and particle agglutination (07/10/2025 5:38 PM EDT) [facility] T. Pallidum Antibodies Positive( A) Negative LAB CHEMISTRY METHOD 07/10/2025 6:[address] [facility] Blood Venous blood specimen / Unknown Venipuncture / Unknown 07/10/2025 5:38 PM EDT 07/10/2025 6:00 PM EDT us Faraz Stroud MD LAB BLOOD ORDERABLES Final Resul t Performing Organization Address [facility] Co de Phone Number [facility] [address] [place] [address], [place] [phone] * Magnesium (07/10/2025 5:38 PM EDT) [facility] Magnesium 2.1 1.9 - 2.6 mg/dL LAB CHEMISTRY METHOD 07/10/2025 7:[address] [facility] Blood Venous blood specimen / Unknown Venipuncture / Unknown 07/10/2025 5:38 PM EDT 07/10/2025 6:00 PM EDT us Faraz Stroud MD LAB BLOOD ORDERABLES Final Resul t Performing Organization Address [facility]/ZIP Co de Phone Number [facility] [address] [place] [address], [place] [phone] * Basic Metabolic Panel (BMP) (07/10/2025 5:38 PM EDT) [facility] Sodium 136 133 - 145 mmol/L LAB CHEMISTRY METHOD 07/10/2025 7:[address] [facility] Potassium 3.9 3.5 - 5.5 mmol/L LAB CHEMISTRY METHOD 07/10/2025 7:[address] [facility] Chloride 105 96 - 110 mmol/L LAB CHEMISTRY METHOD 07/10/2025 7:[address] [facility] CO2 25 21 - 32 mmol/L LAB CHEMISTRY METHOD 07/10/2025 7:[address] [facility] Anion Gap 6 3 - 11 LAB CHEMISTRY METHOD 07/10/2025 7:[address] [facility] Glucose 87 70 - 100 mg/dL LAB CHEMISTRY METHOD 07/10/2025 7:[address] [facility] BUN 13 5 - 25 mg/dL LAB CHEMISTRY METHOD 07/10/2025 7:[address] [facility] Creatinine 1.18 0.70 - 1.30 mg/dL LAB CHEMISTRY METHOD 07/10/2025 7:[address] [facility] eGFR 87 >=60 mL/min/1. 73m2 LAB CHEMISTRY METHOD 07/10/2025 7:[address] [facility] Comment:Calculation based on the Chronic Kidney Disease Epidemiology Collaboration (CKD-EPI) equation refit without adjustment for race. BUN/Creatinine Ratio 11.0 LAB CHEMISTRY METHOD 07/10/2025 7:[address] [facility] Calcium 9.7 8.5 - 10.5 mg/dL LAB CHEMISTRY METHOD 07/10/2025 7:[address] [facility] Blood Venous blood specimen / Unknown Venipuncture / Unknown 07/10/2025 5:38 PM EDT 07/10/2025 6:00 PM EDT us Faraz Stroud MD LAB BLOOD ORDERABLES Final Resul t [facility] [address] [place] [address], * [id number], RSV, Influenza A and B qualitative RT-PCR (07/10/2025 5:30 PM EDT) Influenza A PCR Not Detected Not Detected LAB MICROBIOLOGY METHOD 07/10/2025 6:[address] [facility] Influenza B PCR Not Detected Not Detected LAB MICROBIOLOGY METHOD 07/10/2025 6:[address] [facility] RSV PCR Not Detected Not Detected LAB MICROBIOLOGY METHOD 07/10/2025 6:[address] [facility] SARS COV-2 Not Detected Not Detected LAB MICROBIOLOGY METHOD 07/10/2025 6:[address] [facility] Swab Nasopharyngeal structure / Unknown Non-blood Collection / Unknown 07/10/2025 5:30 PM EDT 07/10/2025 5:[address] [facility] - 07/10/2025 6:21 PM EDT Disclaimer: Testing was performed using the [employer] GeneXpert Xpress SARS-CoV-2 _Flu_RSV PLUS PCR assay. [...] for Healthcare providers can be found at https://www.fda.gov/media/139134/download. Fact sheet for Healthcare patients can be found at https://www.fda.gov/media/497292/download. Faraz Stroud MD LAB MICROBIOLOGY - GENERAL ORDER CASEY Final Result [facility] [address] [place] [address], from Last 3 Months Insurance [facility] [employer] Care Teams Cottage Cheese Maker Relationship Specialty Start Date End Date Physician, Pcp Unknown PCP - General 07/10/25
--- OUTSIDE RECORDS SUMMARY | 2025-07-11 01:42 | XMS_ITS | Encounter Summary ---
Author Organization [facility] Address [address] [place] [address] Care Team Providers Care Practice Physician Name Role Phone Evelia Aldrich LCSW Unavailable [phone] Pcp, No Primary Care Provider Unavailabl e Jayna Rosario LPC Unavailable Encounter Details Date Type Department Care Team (Late st Contact Info) Description 12/18/2019 Scanned Document [facility] EMERGENCY MED SCAN Emergency Medicine, Scan Social History Tobacco Use Types Packs/Day Years Used Date Smoking Tobacco: Former Smokeless Tobacco: Never Alcohol Use Standard Drinks/Week [...] on filedocumented in this encounter Care Teams Practice Physician Relationship Specialty Start Date End Date Pcp, No PCP - General General Medicine 11/19/19 Evelia Aldrich LCSW Needs valid address Automation Test Developer Social Work 01/26/19 02/09/22 Jayna Rosario LPC [address] [place] [address] Automation Test Developer Clinical Social Work 10/06/24 documented as of this encounter
--- OUTSIDE RECORDS SUMMARY | 2025-07-11 01:42 | XMS_ITS | Clinical Summary ---
Author Organization [facility] Address [address] [place] [address] Care Team Providers Care Lap Polisher Name Role Phone Pcp, No Primary Care Provider Jayna Mathews DEHYDROGENATION SUPERVISOR Unavailable [phone] Allergies Active Allergy Reactions Criticality Noted Date Comments Bioflavonoids Unknown/Patient and Family Unable to Define Medium 01/18/2019 [place] Rash/Dermatitis Low 12/16/2018 Corylus Rash/Dermatitis Low 12/16/2018 Tilactase Unknown/Patient and Family Unable to Define Medium 01/01/2019 Iesha Nut Hives Medium 01/18/2019 Lactose Unknown/Patient and Family Unable to Define Medium 01/18/2019 Nuts Unknown/Patient and Family Unable to Define Medium 01/01/2019 Peanut Oil Anaphylaxis High 09/05/2020 Pork (Porcine) Protein Hives Medium 09/05/2020 Medications * This document contains information received from the source organization and may not represent a complete record from that organization. SUPPLY DME MISCIndications:C hronic back pain, unspecified back location, unspecified back pain laterality Back brace for chronic back pain 1 supply 01/25/20 19 Active senna-docusate (sennosides-docus ate sodium) 8.6-50 MG Take 2 tablets by mouth daily. Active Pseudoephedrine-g uaiFENesin 60-375 MG tablet Take 1 tablet by mouth 2 (two) times a day. 20 tablet 11/19/19 20 Active Thiamine HCl (VITAMIN B-1 PO) Take by mouth. Active EPINEPHrine 0.3 mg/0.3 mL IJ auto-injection Inject 0.3 mL (0.3 mg total) into the shoulder, thigh, or buttocks once as needed for anaphylaxis. 3 each 11/22/19 Active predniSONE (DELTASONE) 20 MG tablet Take 2 tablets (40 mg total) by mouth daily. Start tomorrow, 1st dose given during encounter 8 tablet 11/22/19 Active ibuprofen (MOTRIN) 800 mg tablet Take 1 tablet (800 mg total) by mouth 3 (three) times a day as needed for mild pain (pain). 20 tablet 12/18/19 22 Active amoxicillin (AMOXIL) 500 MG capsule Take 1 capsule (500 mg total) by mouth 3 (three) times a day. Stop medication if rash develops or if other side effects occur 30 capsule 12/18/19 Active dicyclomine (BENTYL) 10 MG capsule Take 1-2 capsules (10-20 mg total) by mouth 4 times daily (every 6 hours) as needed for cramping. 12 capsule 09/03/20 Active famotidine (PEPCID) 20 MG tablet Take 1 tablet (20 mg total) by mouth 2 (two) times a day. 14 tablet 11/12/19 25 Active ondansetron (ZOFRAN-ODT) 4 MG disintegrating tablet Take 1 tablet (4 mg total) by mouth 3 times daily (every 8 hours) as needed for nausea or vomiting. Place tablet on tongue to dissolve. 10 tablet 11/12/19 25 Active ibuprofen (MOTRIN) 600 MG tablet Take 1 tablet (600 mg total) by mouth every 6 (six) hours. 30 tablet 02/05/20 25 Active ondansetron (ZOFRAN-ODT) 4 MG disintegrating tablet Take 1 tablet (4 mg total) by mouth 3 times daily (every 8 hours) as needed for nausea or vomiting. Place tablet on tongue to dissolve. 10 tablet 02/05/20 25 Active dicyclomine (BENTYL) 10 MG capsule Take 1 capsule (10 mg total) by mouth 4 (four) times a day. 20 capsule 02/05/20 25 Active ketorolac (ACULAR) 0.5 % ophthalmic solution Administer 1 drop into the left eye 4 (four) times a day. 3.5 mL 11/15/19 20 2021 Discontinued meloxicam (MOBIC) 15 MG tablet Take 1 tablet (15 mg total) by mouth daily. 20 tablet 11/19/19 20 2021 Discontinued erythromycin (ILOTYCIN) ophthalmic ointment Place a small ribbon of ointment inside the lower eyelid of the affected eye every four hours while awake 3.5 g 11/23/19 20 2021 Discontinued ciprofloxacin (CIPRO) 500 MG tablet Take 1 tablet (500 mg total) by mouth 2 (two) times a day. 14 tablet 08/15/20 20 2021 Discontinued Active Problems Problem Noted Date Diagnosed Date Suicidal ideation 10/05/2024 Homelessness 02/02/2019 Pain, dental 02/02/2019 History of syphilis 02/02/2019 Overview (02/13/2019): Treated in fall in [facility] for Dx of Syphilis w reported titer of 1:32. Titer in Epic is 1:2 Dec 03 2018. Malingering 01/20/2019 Overview (02/02/2019): Overview: Patient has been at [facility] ED daily for past 3 days (01/18/19-01/20/19) for pain related issues and frequenting other hospital EDs. Made suicidal comment in setting of not wanting to be discharged to a long-term. Currently homeless. Immunizations Immunization Administration Dates Next Due Tdap 03/10/2019 Family History Medical History Relation Name Comments No Known Problems Brother Alcohol abuse Father Anxiety disorder Father Depression Father Alcohol abuse Mother per records, t his visit he denied Bipolar disorder Mother Mental illness Mother Alcohol abuse Paternal Grandfather No Known Problems Sister Suicide attempts Neg Hx Suicide completion Neg Hx Relation Name Status Comments Brother Father Mother Paternal Grandfather Sister Social History Tobacco Use Types Packs/Day Years [...] Orientation Heterosexual (straight) 03/27 2:11 AM EDT Last Filed Vital Signs Vital Sign Reading Time Taken Comments Blood Pressure 126/89 02/04/2025 10:26 AM EDT Pulse 105 02/04/2025 10:26 AM EDT Temperature 37.9 C (100.3 F) 02/04/2025 10:26 AM EDT Respiratory Rate 18 02/04/2025 10:26 AM EDT Oxygen Saturation 96% 02/04/2025 10:26 AM EDT Inhaled Oxygen Concentration - - Weight 63.5 kg (140 lb) 02/04/2025 10:26 AM EDT Height 175.3 cm (5' 9 ) 02/04/2025 10:26 AM EDT Body Mass Index 20.67 02/04/2025 10:26 AM EDT Plan of Treatment Health Maintenance Due Date Last Done Comments Hepatitis B Vaccines (1 of 3 - 19+ 3-dose series) 2017 HPV Vaccines (1 - 3-dose SCDM series) 2025 Influenza Vaccine 06/01/2025 10/22/2017, 09/05/2014 COVID-19 Vaccine ( - season) 2025 12/29/2021, 11/26/2021 DTaP/Tdap/Td Vaccines (2 - Td or Tdap) 03/10/2029 03/10/2019 Hepatitis C Virus Screening Completed 2019 HIV Screening Completed 02/04/2025, 11/01, 12/10/2023, Additional history exists Pneumococcal Vaccine: Pediatric (0-5 Years) and At-Risk Patients (6 to 49 Years) Aged Out No longer eligible based on patient's age to complete this topic Procedures Procedure Name Priority Date/Time Associated Diagnosis Comments HIV 1/2 AG/AB CMIA REFLEX TO CONFIRMATION STAT 02/04/2025 10:44 AM EDT HEPATITIS C VIRUS (HCV) ANTIBODY Routine 2019 9:24 AM EDT Screen for STD (sexually transmitted disease) from Last 3 Months or Most Recently Relevant to Health Maintenance Results * HIV 1/2 Ag/Ab CMIA Reflex to Confirmation (02/04/2025 10:44 AM EDT) HIV 1/2 Ag/Ab CMIA Nonreactive Nonreactive 02/05/2025 11:22 AM EDT [facility] Comment: Results show no evidence of infection by HIV 1/2. If clinically indicated, repeat CMIA or test by nucleic acid amplification. HIV 1/2 Antigen/Antibody CMIA reflex to confirmation AND HIV-1 RNA viral load recommended in patients who are taking or have recently taken PrEP. Blood Blood specimen / Unknown 02/04/2025 10:44 AM EDT 02/04/2025 10:46 AM EDT Anna Lynch MD LAB BLOOD ORDERABLES Final R esult [facility] [address] [place] [address], * Hepatitis C Virus (HCV) Antibody (2019 9:24 AM EDT) Hepatitis C Antibody NON-REACT PATEL NON-REACT PATEL [facility] Hepatitis C Antibody (s/co) 0.02 <1.00 [facility] Comment: HCV antibody was non-reactive. There is no laboratory evidence of HCV infection. In most cases, no further action is required. However, if recent HCV exposure is suspected, a test for HCV RNA (test code 11921) is suggested. For additional information please refer to http://education.VetCompare/faq/LXY01s6 (This link is being provided for informational/ educational purposes only.) Blood specimen (specimen) 2019 9:24 AM EDT 2019 9:27 AM EDT Narrative [facility] - 01/25/2019 11:09 PM EDT FASTING:NO FASTING: NO Resulting Agency Comment Performing Organization Information: Site ID: [id number] Name: [facility] Address: [address] [place] [address], [place] [address] Director: Jovanni Sinclair MD us Stacy TROY LAB BLOOD ORDERABLES Final Resu lt [facility] [address], [place] [address] from Last 3 Months or Most Recently Relevant to Health Maintenance Care Teams Lap Polisher Relationship Specialty Start Date End Date Pcp, No PCP - General General Medicine 11/19/19 Jayna Rosario LPC [address] [place] [address] Human Machine Interface Engineer Clinical Social Work 10/06/24
--- OUTSIDE RECORDS SUMMARY | 2025-07-11 01:42 | XMS_ITS | Encounter Summary ---
Author Organization [facility] Address [address] [place] [address] Care Team Providers Care Telephone Technician Name Role Phone Stacy Tello Primary Care Provider Evelia AldrichW Unavailable [phone] Pcp, No Primary Care Provider UnavailJayna Gallegos LPC Unavailable [phone] Encounter Details Date Type Department Care Team (Late st Contact Info) Description 03/23/2019 Prep for Surgery [facility] [address] [phone] Macy Ohara MD [address] [place] [id number] Social History Tobacco Use Types Packs/Day Years [...] on filedocumented in this encounter Care Teams Telephone Technician Relationship Specialty Start Date End Date Stacy Tello PA [address] [facility] [address] [place] [address] PCP - General Internal Medicine 01/24/19 11/03/19 Pcp, No PCP - General General Medicine 11/19/19 Evelia Aldrich LCSW Needs valid address Automatic Vulcanizing Operator Social Work 01/26/19 02/09/22 Jayna Rosario LPC [address] [place] [address] Automatic Vulcanizing Operator Clinical Social Work 10/06/24 documented as of this encounter
--- OUTSIDE RECORDS SUMMARY | 2025-07-11 01:42 | XMS_ITS | Encounter Summary ---
Author Organization [facility] Address [address] [place] [address] Care Team Providers Care Middleware Developer Name Role Phone Stacy Tello Primary Care Provider [phone] Evelia AldrichW Unavailable [phone] Pcp, No Primary Care Provider UnavailJayna Gallegos LPC Unavailable Encounter Details Date Type Department Care Team (Late st Contact Info) Description 03/22/2019 Scanned Document [address] [phone] Provider, Ry, [address] [place] [address] Social History Tobacco Use Types Packs/Day Years [...] on filedocumented in this encounter Care Teams Middleware Developer Relationship Specialty Start Date End Date Stacy Tello PA [address] [facility] [address] [place] [address] PCP - General Internal Medicine 01/24/19 11/03/19 Pcp, No PCP - General General Medicine 11/19/19 Evelia Aldrich LCSW Needs valid address Count Team Member Social Work 01/26/19 02/09/22 Jayna Rosario LPC [address] [place] [address] Count Team Member Clinical Social Work 10/06/24 documented as of this encounter
--- OUTSIDE RECORDS SUMMARY | 2025-07-11 01:42 | XMS_ITS | Encounter Summary ---
Author Organization [facility] Address [address] [place] [address] Care Team Providers Care Account Liaison Name Role Phone Stacy Tello Primary Care Provider Evelia AldrichW Unavailable [phone] Pcp, No Primary Care Provider UnavailJayna Gallegos LPC Unavailable [phone] Encounter Details Date Type Department Care Team (Late st Contact Info) Description 03/23/2019 Prep for Surgery [facility] [address] [phone] Macy Ohara MD [address] [place] [address] Social History Tobacco Use Types Packs/Day Years [...] on filedocumented in this encounter Care Teams Account Liaison Relationship Specialty Start Date End Date Stacy Tello PA [address] [facility] 1 [place] [address] PCP - General Internal Medicine 01/24/19 11/03/19 Pcp, No PCP - General General Medicine 11/19/19 Evelia Aldrich LCSW Needs valid address Cutting Table Operator Social Work 01/26/19 02/09/22 Jayna Rosario LPC [address] [place] [address] Cutting Table Operator Clinical Social Work 10/06/24 documented as of this encounter
--- NOTE | 2025-07-11 01:51 | ED.MALEGU ---
HPI - Male Genitourinary General Chief complaint: Urogenital-Male Stated complaint: STD Time Seen by Provider: 07/11/25 01:51 Source: patient and old records reviewed Mode of arrival: ambulatory Limitations: other (Anxiety) History of Present Illness ED Provider: Dr. Monique Mcnulty HPI Narrative: 25-year-old male with a history of PTSD, OCD, anxiety and depression presenting with anxiousness and potential exposure to STDs. Patient states ?I am not a homosexual I've just lived with a man for the last 7 years and it just turned into that naturally?. Admits that he was seen at [facility] yesterday and diagnosed with syphilis. Reports that he has tested positive for syphilis in the past and has been treated previously and is concerned that this test is incorrect. He has no physical complaints, has just been feeling anxious. Denies dysuria or hematuria. No testicular pain or swelling. No penile drainage, ulcers on the penis, skin rashes or nausea. Has been feeling relatively well aside from extreme anxiety about STDs. Very tangential in his thought process and difficult to redirect. He is fixated on his emergency department visit at [facility]. Unable to obtain further information. Related Data Allergies Allergy/AdvReac Type Severity Reaction Status Date / Time peanut (PEANUT) Allergy Severe ANAPHYLAXIS Verified 07/11/25 13:04 Benson And Derivatives Allergy Unknown DIZZINES Verified 07/11/25 13:04 (CITRUS) nut - unspecified (NUTS) Allergy Unknown UNKNOWN Verified 07/11/25 13:04 Beef Containing Products Allergy Anaphylaxis Verified 07/11/25 13:04 Horse/Equine Containing Allergy Anaphylaxis Verified 07/11/25 13:04 Products peas Allergy Hives Verified 07/11/25 13:04 pork derived (porcine) Allergy Anaphylaxis Verified 07/11/25 13:04 DAIRY PRODUCTS Allergy Unknown DIZZINESS Uncoded 07/18/20 16:55 Review of Systems Review of Systems: Yes Unobtainable due to mental condition PMFSH Past Medical History Medical History Anxiety PTSD (post-traumatic stress disorder) Asthma Social History Social History Alcohol intake: never Patient Tobacco Use Status: Never used Tobacco Substance Use Type: Marijuana Physical Exam Exam: Exam: GENERAL: Anxious, agitated, uncontrolled movements. SKIN: Normal skin color for ethnicity, warm, dry, no rashes, no crepitus, no petechiae, no blistering. HEENT: Normocephalic, atraumatic, no stridor, posterior oropharynx nonerythematous, poor oneida dentition, dry mucous membranes, EOMI. NECK: Soft, supple, full ROM, midline structures nontender, no step-offs, no deformities, no lymphadenopathy. CHEST: Heart regular tachycardia, no murmurs, symmetric chest rise and fall, no crepitus. PULMONARY: Clear to auscultation bilaterally, no labored breathing, no wheezes/rhales/rhonchi. ABDOMINAL: Soft, nondistended, nontender, positive bowel sounds in all quadrants. : Deferred. MUSCULOSKELETAL: Normal tone, full range of motion, no deformities, no peripheral edema. NEURO: Alert and oriented to person, CN II through XII intact, equal strength and sensation bilateral upper and lower extremities, no focal neurologic deficits. PSYCHIATRIC: Anxious affect, agitated, tangential speech, poor eye contact and psychomotor agitation. Vital Signs: Vital Signs: Last Vital Signs Temp 97.9 F 07/11/25 07:11 Pulse 89 07/11/25 07:11 Resp 15 07/11/25 07:11 BP 128/89 07/11/25 07:11 Pulse Ox 100 07/11/25 07:11 O2 Del Method Room Air 07/11/25 07:11 BMI result Body Mass Index 17.1 Medical Decision Making Medical Decision Making MDM Narrative: Patient presenting with potential STD exposure. Differential diagnosis includes syphilis infection, chlamydia, gonorrhea, herpes, epididymitis, varicocele, among others. Patient is refusing exam in the emergency department. He is anxious about a visit he had at [facility] emergency department yesterday and being told that he might have syphilis again. Patient has absolutely no complaints and has not noticed any discharge from the penis. Admits that he is anxious and has been urinating frequently and is concerned this might be a sign of recurrent syphilis infection. He is sexually active with a single male partner. He does not use barrier protection. Plan for STD check and will offer prophylaxis. Patient is refusing medications at this point. States that he only wants testing. Using shared decision making, plan for discharge home to follow-up with primary care. Informed him that if his test becomes positive, he will be contacted. Patient understands and agrees with plan for discharge. Discharged home in stable condition. Differential Diagnosis Differential Diagnoses: The differential diagnosis associated with the presentation includes (As above) Admission/Observation Consideration of admission/observation: Escalation of care including admission/observation considered Lab Data MDM Lab Attestation statement: I reviewed the patient's lab results. Labs: Lab Results 07/11/25 Range/Units 03:43 Urine Color Yellow Urine Appearance Clear Urine pH 6.0 (5.0-9.0) Ur Specific [place] 1.025 (1.005-1.025) Urine Protein Trace (Neg-Trace) mg/dL Urine Glucose (UA) Negative (Negative) mg/dL Urine Ketones Trace (Negative) mg/dL Urine Blood Negative (Negative) Urine Nitrite Negative (Negative) Ur Leukocyte Esterase Negative (Negative) Ur N gonorrhoeae DNA (PCR) NOT DETECTED (Not Detect.) RPR Titer TNP RPR NON-REACTIVE (NON-REACTIVE) Ur Chlamydia DNA (PCR) NOT DETECTED (Not Detect.) External Record Review External record reviewed: Inpatient record Prescription Management I considered prescription management with: Antiviral and Antibiotic Chronic Conditions Patient?s care impacted by: Other (PTSD, anxiety and depression) Social Determinants Patient?s care significantly limited by Social Determinants of Health including: Inadequate housing, Problems related to primary support group and Other Social Determinant of Health Discharge Plan Discharge Clinical Impression: History of syphilis, Encounter for medical screening examination Patient Disposition: Home, Self-Care Instructions: Sexually Transmitted Diseases (ED) Additional Instructions: Your syphilis test is still pending. If it is positive, we will call you. Return to the ER immediately if you develop any new or worsening symptoms including: Chest pain, difficulty breathing, fevers greater than 100?, worsening abdominal pain, any new symptom that concerns you. Call 911 with any medical emergency. Interventions: ED Discharge Assessment Last Done: 07/11/25 07:11 Discharge Date/Time: 07/11/25 07:14 Print Language: Maori
[2025-07-11 03:48] LABS: Appearance Urine Clear; Glucose Urine UA Negative (Negative); PH 6.0 (5.0-9.0); Specific Gravity - Urine 1.025 (1.005-1.025)
[2025-07-11 05:16] LABS: CT PCR Urine NOT DETECTED (Not Detect.); NG PCR Urine NOT DETECTED (Not Detect.)
[2025-07-11 07:11] VITALS: BP 128/89; PULSE 89; RESP 15; TEMP 36.6; O2SAT 100
== END 2025-07-11 07:14 | disposition home or self-care (01) ==
PROVIDERS: Emergency Provider Emergency Medicine
DX: Z86.19 Personal history of other infectious and parasitic diseases (principal); Z20.2 Contact with and (suspected) exposure to infections with a predominantly sexual mode of transmission
CPT/HCPCS: 36415; 81003; 86592; 87491; 87591; 99283; 99284

== ENCOUNTER 2025-07-11 12:44 | Outpatient (AMB) | payer OTHER, SELFPAY ==
--- OUTSIDE RECORDS SUMMARY | 2025-07-10 16:27 | XMS_ITS | Encounter Summary ---
Author Organization [facility] Address [address] [place] [address] Care Team Providers Care Interactive Media Marketing Specialist Name Role Phone Physician, Pcp Unknown Primary Care Provider Maritza vailable Reason for Visit * Reason Comments Headache Encounter Details Date Type Department Care Team (Late st Contact Info) Description 07/10/2025 4:27 PM EDT - 07/10/2025 6:55 PM EDT Emergency [facility] Emergency [address] [place] [address] Faraz Stroud MD [address] [facility] [address] [place] [address] Syncope and collapse (Primary Dx); Viral illness; STI (sexually transmitted infection) Discharge Disposition: Left Against Medical Advice Social History Tobacco Use Types Packs/Day Years Used Date Smoking Tobacco: Some Days Cigarettes Smokeless Tobacco: Never Comments:Smokes socially Sex and Gender Information Value Date Recorded Sex Assigned at Not on file Legal Sex Male 12:25 PM EST Gender Identity Not on file Sexual Orientation Not on file documented as of this encounter Last Filed Vital Signs Vital Sign Reading Time Taken Comments Blood Pressure 173/98 07/10/2025 4:08 PM EDT Pulse 81 07/10/2025 4:08 PM EDT Temperature 36.6 C (97.9 F) 07/10/2025 5:32 PM EDT Respiratory Rate 16 07/10/2025 4:08 PM EDT Oxygen Saturation 96% 07/10/2025 4:08 PM EDT Inhaled Oxygen Concentration - - Weight 52.6 kg (116 lb) 07/10/2025 4:08 PM EDT Height 177.8 cm (5' 10 ) 07/10/2025 4:08 PM EDT Body Mass Index 16.64 07/10/2025 4:08 PM EDT documented in this encounter Discharge Instructions * Discharge Instructions* Faraz Stroud MD - 07/10/2025 6:40 PM EDT You are leaving the hospital against my advice. You have or may have a life- threatening illness or injury which I would like to evaluate and treat further. You may from this today, or become gravely disabled or very sick. Please return to medical care immediately when you are willing to allow us to care for you. Call your doctor as soon as possible. You can look up all of your pending lab work on my patient portal. If you would like additional testing for HIV I recommend you follow-up with your primary care provider or at the [place] public health department. While you are taking these antibiotics you should not be having sexual intercourse as you may have a sexual transmitted infection. You should notify all of your sexual partners that they need to be tested and possibly treated for sexually transmitted infection. I recommend you use condoms to reduceyour risk of obtaining a sexually transmitted infection. [place] is a self reporting state to the registry of motor vehicles, you should not be driving or operating heavy machinery until you are cleared by your primary care provider. * Attachments The following attachments cannot be sent through Care Everywhere. * Antibiotics: General Info (Somali) documented in this encounter Medications at Time of Discharge cyclobenzaprine (FLEXERIL) 10 mg tabletIndications:A cute right-sided thoracic back pain Take 1 tablet (10 mg total) by mouth at bedtime as needed for muscle spasms. 30 tablet 05/31/2025 doxycycline (VIBRAMYCIN) 100 mg capsule Take 1 capsule (100 mg total) by mouth 2 (two) times a day for 14 days. Take with at least 8 ounces (large glass) of water, do not lie down for 30 minutes after. Administer 2 hours before or after multivitamins, antacids, or other products containing polyvalent cations (i.e., calcium, iron, magnesium, selenium, zinc). 14 each 07/11/2025 5 EPINEPHrine (EPIPEN) 0.3 mg/0.3 mL injection Inject 0.3 mL (0.3 mg total) into the thigh if needed for anaphylaxis. 1 each 07/10/2025 ondansetron ODT (ZOFRAN-ODT) 8 mg disintegrating tabletIndications:N ausea Dissolve 1 tablet (8 mg total) on top of the tongue every 8 (eight) hours if needed for nausea or vomiting. 8 tablet 03/23/2024 doxycycline (VIBRAMYCIN) 100 mg capsule Take 1 capsule (100 mg total) by mouth 2 (two) times a day for 7 days. Take with at least 8 ounces (large glass) of water, do not lie down for 30 minutes after. Administer 2 hours before or after multivitamins, antacids, or other products containing polyvalent cations (i.e., calcium, iron, magnesium, selenium, zinc). 14 each 07/10/2025 5 documented as of this encounter Ordered Prescriptions Prescription Sig Dispense Quantity Refills Last Filled Start Date End Date doxycycline (VIBRAMYCIN) 100 mg capsule Take 1 capsule (100 mg total) by mouth 2 (two) times a day for 14 days. Take with at least 8 ounces (large glass) of water, do not lie down for 30 minutes after. Administer 2 hours before or after multivitamins, antacids, or other products containing polyvalent cations (i.e., calcium, iron, magnesium, selenium, zinc). 14 each 07/11/2025 5 EPINEPHrine (EPIPEN) 0.3 mg/0.3 mL injection Inject 0.3 mL (0.3 mg total) into the thigh if needed for anaphylaxis. 1 each 07/10/2025 doxycycline (VIBRAMYCIN) 100 mg capsule Take 1 capsule (100 mg total) by mouth 2 (two) times a day for 7 days. Take with at least 8 ounces (large glass) of water, do not lie down for 30 minutes after. Administer 2 hours before or after multivitamins, antacids, or other products containing polyvalent cations (i.e., calcium, iron, magnesium, selenium, zinc). 14 each 07/10/2025 5 documented in this encounter Discharge Disposition Disposition Code Departure Means Destination Comment s Left Against Medical Advice documented in this encounter Progress Notes * Arnaud Rico RN - 07/10/2025 6:52 PM EDT Patient refused IV despite education, he and the provider spoke and the patient decided to leave against medical advice. He got up steadily and walked to the bathroom and got dressed independently. He steadily left the ED. AMA form was signed. Provider is aware and signed the form. * Melva Carlos RN - 07/10/2025 4:08 PM EDT Pt c/o heat flashes when he started drinking lemonade this am Pt refusing temp at triage and refusing to wear bracelet Also reports he is homeless * Faraz Stroud MD - 07/10/2025 4:04 PM EDT HPI Chief Complaint Patient presents with Headache Patient is a 25-year-old male with reported history of bipolar disorder, hepatitis C and multiple food allergies presenting with rhinorrhea, cough, nasal congestion and myalgias that began today. Patient states he was concerned that he was exposed to a sexually-transmitted infection yesterday afterhaving unprotected sex. Patient also states he has multiple food allergies including peanuts, peas, citrus. He drank some lemonade this morning which he suspects may be contributing to his symptoms. Patient denies SI, HI, auditory visual loose nations. Patient states he takes no medications at home. No data recorded Patient History History reviewed. No pertinent past medical history. History reviewed. No pertinent surgical history. No family history on file. Social History Tobacco Use Smoking status: Some Days Types: Cigarettes Smokeless tobacco: Never Tobacco comments: Smokes socially Substance Use Topics Alcohol use: Not on file Drug use: Not on file Review of Systems Review of Systems Physical Exam ED Triage Vitals [09/09/25 1608] Temp Heart Rate Resp BP -- 81 16 (!) 173/98 SpO2 Temp src Heart Rate Source Patient Position 96 % -- -- Sitting BP Location FiO2 (%) Right arm -- Physical Exam Vitals and nursing note reviewed. Constitutional: General: He is not in acute distress. Appearance: He is not ill-appearing. HENT: Head: Normocephalic and atraumatic. Right Ear: External ear normal. Left Ear: External ear normal. Nose: Nose normal. Mouth/Throat: Mouth: Mucous membranes are moist. Pharynx: Oropharynx is clear. Comments: Rhinorrhea Eyes: Extraocular Movements: Extraocular movements intact. Pupils: Pupils are equal, round, and reactive to light. Cardiovascular: Rate and Rhythm: Normal rate and regular rhythm. Pulses: Normal pulses. Radial pulses are 2+ on the right side and 2+ on the left side. Dorsalis pedis pulses are 2+ on the right side and 2+ on the left side. Heart sounds: Normal heart sounds. Pulmonary: Effort: Pulmonary effort is normal. Breath sounds: Normal breath sounds. No stridor. No wheezing or rhonchi. Abdominal: General: There is no distension. Tenderness: There is no abdominal tenderness. There is no right CVA tenderness, left CVA tendernessor guarding. Musculoskeletal: General: Normal range of motion. Cervical back: Normal range of motion and neck supple. Right lower leg: No edema. Left lower leg: No edema. Skin: General: Skin is warm and dry. Capillary Refill: Capillary refill takes less than 2 seconds. Findings: No rash. Neurological: General: No focal deficit present. Mental Status: He is alert and oriented to person, place, and time. Cranial Nerves: No dysarthria or facial asymmetry. Comments: Moves all extremities well. ED Course & MDM ED Course as of 07/11/25 0020 [facility] Jul 10, 2025 183 EKG sinus rhythm with shortened AL interval, 78 bpm, AL interval 96 MS, QTc 442 MS, normal axis, no sign of acute ischemia. [RT] 1842 I was notified by the nursing staff that patient refused IV access. I went to go reevaluate this patient is resting comfortably in gurney no acute distress. Unlabored respirations, speaking in full sentences in no acute distress. Estimate discharge home. I explained to him that patient be leaving AGAINST MEDICAL ADVICE as he may have a life-threatening emergency given that he passed out twice today. At this time he is alert and oriented x 4 answering questions appropriately. He denies SI or HI. He has a linear thought process and is requesting be discharged home. I discussed the plan foroutpatient doxycycline for STI treatment, refill of his epinephrine autoinjector, I encouraged him to come back to the ER for any reason or if he changes mind he continues treatment today. That he does have pending lab work and you can follow-up these results on the my patient portal. [RT] WedJul 11, 2025 0018 Patient is a positive treponema palladium antibody. Called patient at this time and spoke withhim he states he has known syphilis and was told that he will always have a positive antibody titer. I explained that I recommend he return to the ER immediately for additional antibiotic treatment. Patient verbalized understanding and plans to come back to the ER. I also extended the doxycycline to 14 days as patient is not picked it up yet which will cover early latent syphilis as well. [RT] ED Course User Index [RT] Faraz Stroud MD Clinical Impressions as of 07/11/25 0020 Syncope and collapse Viral illness STI (sexually transmitted infection) Medical Decision Making Patient 25-year-old male presenting with rhinorrhea, nasal congestion and myalgias that began today. Patient suspects he may be having an allergic reaction secondary to drinking lemonade earlier thismorning. Patient is a very limited historian and at times during my interview he would switch between being concerned about an exposure to peanuts he had several days ago to an exposure to lemonade today that may have caused the symptoms. I offered patient Benadryl and Pepcid. Patient refused he states he is allergic to his medications. Offered patient Tylenol as well, patient refused stating he is also allergic to this medication. Patient additionally is concerned that he may have had an STI ex posure last night after having unprotected sex with 1 partner. He denies any testicular pain, penile discharge or penile pain. He has no inguinal, scrotal or penile lesions. I offered him HIV postexposure prophylaxis he refused. He is agreeable for gonorrhea, chlamydia and syphilis testing as well as COVID and flu testing. He wants to be empirically treated for gonorrhea and chlamydia today. During the patient's blood draw patient had a syncopal episode and shortly regained consciousness he also had another syncopal episode while walking to the [facility]. Prior to the episode patient statedhe felt hot and sweaty. This is consistent with a vasovagal episode. EKG did show a shortened AL interval but no delta wave, no Brugada wave, no prolonged or shortened QTc interval, no sign of acute ischemia. Was given Rocephin and doxycycline for empiric STI treatment. Differential diagnosis includes but not limited to syncope, dehydration, dysrhythmia. Plan for additional blood work and imaging. Patient refused an IV and is requesting to leave AMA atthis time. Patient does not appear to be having an allergic reaction today. Does not appear to be in anaphylaxis. Patient is not suicidal or homicidal. Patient states he previously had EpiPen's for peanut allergy causing anaphylaxis. I did send a refill of his EpiPen to his pharmacy. The patient is clinically sober, free from distracting injury, appears to have intact insight and judgment and reason, can carry on a conversation and in my opinion has the capacity to make decisions. The patient presents with viral URI symptoms and 2 syncopal episodes while here in the ER. I have explained that I am concerned that this may represent serious or life threatening pathology; the patient has verbalized an understanding of my concerns. I have told the patient that while their initialworkup may be normal, they could still have a life threatening condition. I have discussed the need for further workup to get more information about potential causes of the patient's symptoms. I havetold the patient that if they leave and have an emergent process, they could get much worse, could become critically ill, and could possibly become disabled or . I have offered to give the patientmore pain medication. I have asked them to stay in the hospital for observation. I have offered reasonable alternatives to the best of my ability. The patient is not willing to undergo further workup or stay for monitoring. They are refusing any further care and leaving against medical advice. I am unable to convince the patient to stay, but I have asked them to return as soon as possible to complete their evaluation. I have answered all their questions. I also explained the patient that he should report his loss of conscious to the registry of [employer] [place] and then he should not be driving or operating heavy machinery until he is cleared by his primary care provider. In an attempt to provide the best care possible in light of the pt leaving AMA, I will send them home with medications including epinephrine injector, antibiotics, and information for follow-up. Procedures Faraz Stroud MD 07/10/25 1648 Faraz Stroud MD 07/10/25 1845 Faraz Stroud MD 07/11/25 0030 documented in this encounter Plan of Treatment Upcoming Encounters Date Type Department Care Team (Latest Contact Info) Description 07/11/2025 3:38 PM EDT Hospital Encounter [facility] Xray [address] [place] [id number] Pain in left hand 07/18/2025 7:00 AM EDT Evaluation [facility] [address] [phone] Jim Tineo, PT Pending Results Name Type Priority Associated Diagnoses Date /Time Treponema pallidum antibody Lab STAT 07/10/2025 5:38 PM EDT Scheduled Orders Name Type Priority Associated Diagnoses Orde r Schedule Treponema pallidum antibody Lab Routine Once for 1 Occur rences starting 07/11/2025 until 07/11/2025 documented as of this encounter Procedures Procedure Name Priority Date/Time Associated Diagnosis Comments ECG ANNOTATED 07/11/2025 ECG 12-LEAD STAT 07/10/2025 6:25 PM EDT TREPONEMA PALLIDUM ANTIBODY WITH REFLEX TO RPR AND PARTICLE AGGLUTINATION STAT 07/10/2025 5:38 PM EDT RAPID PLASMA REAGIN WITH REFLEX TO TITER STAT 07/10/2025 5:38 PM EDT MAGNESIUM STAT Add-on 07/10/2025 5:38 PM EDT BASIC METABOLIC PANEL STAT Add-on 07/10/2025 5:38 PM EDT [id number], RSV, FLU A AND B QUALITATIVE RT-PCR, INTERNAL LAB STAT 07/10/2025 5:30 PM EDT CHLAMYDIA TRACHOMATIS AND NEISSERIA GONORRHOEAE PCR STAT 07/10/2025 5:30 PM EDT documented in this encounter Results * ECG-Annotated (07/11/2025) Provider Onemilie DELGADO ECG ORDERABLES Final Result * 12-Lead ECG (07/10/2025 6:25 PM EDT) Pathologist [facility] Ventricular Rate ECG 78 BPM GEMUSE Atrial Rate 78 BPM GEMUSE P-R Interval 96 ms GEMUSE QRS Duration 92 ms GEMUSE Q-T Interval 388 ms GEMUSE QTc 442 ms GEMUSE P Wave Newton 33 degrees GEMUSE R [place] 56 degrees GEMUSE T [place] 51 degrees GEMUSE ECG Interpretation Poor data quality, interpretation may be adversely affected Sinus rhythm with short AL Minimal voltage criteria for LVH, may be normal variant Borderline ECG No previous ECGs available Confirmed by Luis Felipe GRACIA YUFENG ([id number]) on 07/10/2025 7:42:24 PM GEMUSE 07/10/2025 6:25 PM EDT 07/10/2025 7:42 PM EDT us Faarz Stroud MD ECG ORDERABLES Final Result Performing Organization Address City/[facility]/ZIP Co de Phone Number GEMUSE * Rapid plasma reagin with reflex to titer (07/10/2025 5:38 PM EDT) Pathologist [facility] RPR Nonreactive Nonreactive 07/11/2025 11:09 AM EDT [facility] Blood Venous blood specimen / Unknown Venipuncture / Unknown 07/10/2025 5:38 PM EDT 07/10/2025 6:55 PM EDT us Faraz Stroud MD LAB BLOOD ORDERABLES Final Resul t [facility] [address] [place] [address], [place] [phone] * Magnesium (07/10/2025 5:38 PM EDT) Pathologist [facility] Magnesium 2.1 1.9 - 2.6 mg/dL LAB CHEMISTRY METHOD 07/10/2025 7:06 PM [facility] Blood Venous blood specimen / Unknown Venipuncture / Unknown 07/10/2025 5:38 PM EDT 07/10/2025 6:00 PM EDT us Faraz Stroud MD LAB BLOOD ORDERABLES Final Resul t [facility] [address] [place] [address], [place] [phone] * Basic Metabolic Panel (BMP) (07/10/2025 5:38 PM EDT) Pathologist [facility] Sodium 136 133 - 145 mmol/L LAB CHEMISTRY METHOD 07/10/2025 7:06 PM [facility] Potassium 3.9 3.5 - 5.5 mmol/L LAB CHEMISTRY METHOD 07/10/2025 7:06 PM [facility] Chloride 105 96 - 110 mmol/L LAB CHEMISTRY METHOD 07/10/2025 7:06 PM [facility] CO2 25 21 - 32 mmol/L LAB CHEMISTRY METHOD 07/10/2025 7:06 PM [facility] Anion Gap 6 3 - 11 LAB CHEMISTRY METHOD 07/10/2025 7:06 PM [facility] Glucose 87 70 - 100 mg/dL LAB CHEMISTRY METHOD 07/10/2025 7:06 PM [facility] BUN 13 5 - 25 mg/dL LAB CHEMISTRY METHOD 07/10/2025 7:06 PM [facility] Creatinine 1.18 0.70 - 1.30 mg/dL LAB CHEMISTRY METHOD 07/10/2025 7:06 PM [facility] eGFR 87 >=60 mL/min/1. 73m2 LAB CHEMISTRY METHOD 07/10/2025 7:06 PM EDT [facility] Comment:Calculation based on the Chronic Kidney Disease Epidemiology Collaboration (CKD-EPI) equation refit without adjustment for race. BUN/Creatinine Ratio 11.0 LAB CHEMISTRY METHOD 07/10/2025 7:06 PM EDT [facility] Calcium 9.7 8.5 - 10.5 mg/dL LAB CHEMISTRY METHOD 07/10/2025 7:06 PM EDT [facility] Blood Venous blood specimen / Unknown Venipuncture / Unknown 07/10/2025 5:38 PM EDT 07/10/2025 6:00 PM EDT us Faraz Stroud MD LAB BLOOD ORDERABLES Final Resul t Performing Organization Address [facility] Co de Phone Number [facility] [address] [place] [address], [place] [phone] * (ABNORMAL) Treponema pallidum antibody with reflex to RPR and particle agglutination (07/10/2025 5:38 PM EDT) [facility] T. Pallidum Antibodies Positive( A) Negative LAB CHEMISTRY METHOD 07/10/2025 6:55 PM EDT [facility] Blood Venous blood specimen / Unknown Venipuncture / Unknown 07/10/2025 5:38 PM EDT 07/10/2025 6:00 PM EDT us Faraz Stroud MD LAB BLOOD ORDERABLES Final Resul t [facility] [address] [place] [address], [place] [phone] * Chlamydia trachomatis and Neisseria gonorrhoeae molecular study (07/10/2025 5:30 PM EDT) [facility] Neisseria gonorrhoeae PCR Negative Negative LAB MOLECULAR DIAGNOSTICS METHOD 07/11/2025 10:40 AM EDT [facility] Chlamydia trachomatis PCR Negative Negative LAB MOLECULAR DIAGNOSTICS METHOD 07/11/2025 10:40 AM EDT [facility] Urine Urine specimen from urethra / Unknown Non-blood Collection / Unknown 07/10/2025 5:30 PM EDT 07/10/2025 5:38 PM EDT Faarz Stroud MD LAB MICROBIOLOGY - GENERAL ORDER CASEY Final Result [facility] [address] [place] [address], * [id number], RSV, Influenza A and B qualitative RT-PCR (07/10/2025 5:30 PM EDT) Influenza A PCR Not Detected Not Detected LAB MICROBIOLOGY METHOD 07/10/2025 6:21 PM EDT [facility] Influenza B PCR Not Detected Not Detected LAB MICROBIOLOGY METHOD 07/10/2025 6:21 PM EDT [facility] RSV PCR Not Detected Not Detected LAB MICROBIOLOGY METHOD 07/10/2025 6:21 PM EDT [facility] SARS COV-2 Not Detected Not Detected LAB MICROBIOLOGY METHOD 07/10/2025 6:21 PM EDT [facility] Swab Nasopharyngeal structure / Unknown Non-blood Collection / Unknown 07/10/2025 5:30 PM EDT 07/10/2025 5:38 PM EDT Narrative [facility] - 07/10/2025 6:21 PM EDT Disclaimer: Testing was performed using the [employer] GeneXpert Xpress SARS-CoV-2 _Flu_RSV PLUS PCR assay. The manner in which this information is used to guide patient care is the responsibility of the healthcare provider. Results should be correlated with the clinical history, epidemiological data, and other data available to the clinician evaluating the patient. Negative results do not preclude infection. This test has been authorized by the FDA under an Emergency Use Authorization (EUA). This test is only authorized for the duration of time the declaration that circumstances exist justifying the authorization of the emergency use of in vitro diagnostic tests for detection of SARS-CoV-2 virus and/or diagnosis of COVID-19 infection under section 564 (b) (1) of the Act, 21 U.S.C 360bbb-3 (b) (1), unless the authorization is terminated or revoked sooner. Reference Range: Not Detected Fact sheet for Healthcare providers can be found at https://www.fda.gov/media/398480/download. Fact sheet for Healthcare patients can be found at https://www.fda.gov/media/035724/download. Faraz Stroud MD LAB MICROBIOLOGY - GENERAL ORDER CASEY Final Result [facility] [address] [place] [address], documented in this encounter Visit Diagnoses Diagnosis Syncope and collapse- Primary Viral illness Unspecified viral infection, in conditions classified elsewhere and of unspecified site STI (sexually transmitted infection) Unspecified venereal disease Pain in left hand documented in this encounter Administered Medications Inactive Administered Medications - up to 3 most recent administrations Medication Order MAR Action Action Date Dose Rate Site cefTRIAXone (ROCEPHIN) injection 500 mg 500 mg, intramuscular, Once, On Wed07/10/25 at 1642, For 1 dose, Indication: Sexually Transmitted Infection Given 07/10/2025 5:37 PM EDT 500 mg Left Deltoid doxycycline (MONODOX) capsule 100 mg 100 mg, oral, Once, On Wed07/10/25 at 1642, For 1 dose, Take with at least 8 ounces (large glass) of water, do not lie down for 30 minutes after. Administer 2 hours before or after multivitamins, antacids, or other products containing polyvalent cations (i.e., calcium, iron, magnesium, selenium, zinc)., Indication: Sexually Transmitted Infection Given 07/10/2025 5:37 PM EDT 100 mg documented in this encounter Discontinued Medications Medication Sig Discontinue Reason Start Date End Da te doxycycline (VIBRAMYCIN) 100 mg capsule Take 1 capsule (100 mg total) by mouth 2 (two) times a day for 7 days. Take with at least 8 ounces (large glass) of water, do not lie down for 30 minutes after. Administer 2 hours before or after multivitamins, antacids, or other products containing polyvalent cations (i.e., calcium, iron, magnesium, selenium, zinc). 07/10/2025 07/11/2025 documented as of this encounter Active and Recently Administered Medications Times are shown in EDT. Scheduled Medication Order 07/08/2025 07/09/2025 07/10/2025 cefTRIAXone (ROCEPHIN) injection 500 mg (COMPLETED) 500 mg, intramuscular, Once, On Wed07/10/25 at 1642, For 1 dose, Indication: Sexually Transmitted Infection 1737 (Given - Provid er: Dilip Bejarano RN) doxycycline (MONODOX) capsule 100 mg (COMPLETED) 100 mg, oral, Once, On Wed07/10/25 at 1642, For 1 dose, Take with at least 8 ounces (large glass) of water, do not lie down for 30 minutes after. Administer 2 hours before or after multivitamins, antacids, or other products containing polyvalent cations (i.e., calcium, iron, magnesium, selenium, zinc)., Indication: Sexually Transmitted Infection 1737 (Given - Provid er: Dilip Bejarano RN) lactated Ringer's bolus 1,000 mL 1,000 mL, intravenous, at 1,000 mL/hr, Administer over 1 Hours, Once, On Wed07/10/25 at 1755, For 1 dose 1755 (Canceled Entry - Provider: Automatic Discharge Provider - Comment: Automatically canceled at discontinue of medication order) documented in this encounter Orders Medications Ordered That Jones ht Not Have Been Administered Count Last Ordered Date First Ordered Date lactated Ringer's bolus 1,000 mL 1 07/10/20 documented in this encounter Additional Health Concerns Infection Onset Date Last Indicated Resolved Time Respiratory Rule-Out 07/10/2025 07/10/2025 025 6:21 PM EDT COVID-19 Rule-Out 07/10/2025 07/10/2025 07/10/2025 6:21 PM EDT documented as of this encounter Care Teams Interactive Media Marketing Specialist Relationship Specialty Start Date End Date Physician, Pcp Unknown PCP - General 07/10/25 documented as of this encounter
--- OUTSIDE RECORDS SUMMARY | 2025-07-11 00:30 | XMS_ITS | Encounter Summary ---
Author Organization [facility] Address [address] [place] [address] Care Team Providers Care Certified Solid Waste Facility Operator Name Role Phone Physician, Pcp Unknown Primary Care Provider Maritza vailable Reason for Visit * Reason Comments Abnormal labs Encounter Details Date Type Department Care Team (Late st Contact Info) Description 07/11/2025 12:30 AM EDT - 07/11/2025 1:09 AM EDT Emergency [facility] Emergency [address] [place] [address] Faraz Stroud MD [address] [facility] [address] [place] [address] Discharge Disposition: Home or Self [...] Description 07/11/2025 3:38 PM EDT Hospital Encounter [facility] Xray [address] [place] [address] Pain in left hand 07/18/2025 7:00 AM EDT Evaluation [facility] [address] [address] Jim Tineo, PT documented as of this encounter Visit Diagnoses Not on filedocumented in this encounter Active and Recently Administered Medications Orders Medications Ordered That Jones ht Not Have Been Administered Count Last Ordered Date First Ordered Date penicillin G benzathine (BIC ILLIN-LA) IM injection 2.4 Million Units 1 07/11/2025 documented in this encounter Care Teams Certified Solid Waste Facility Operator Relationship Specialty Start Date End Date Physician, Pcp Unknown PCP - General 07/10/25 documented as of this encounter
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
[2025-07-11 13:01] VITALS: BP 116/74; PULSE 64; O2SAT 97; BMI 16.4
--- OUTSIDE RECORDS SUMMARY | 2025-07-11 15:41 | XMS_ITS | Clinical Summary ---
Author Organization Formerly [facility] Address [address] [place] [address] Care Team Providers Care Wearing Apparel Presser Name Role Phone Pcp, No Primary Care Provider Jayna Mathews [facility] MEDICAL AND LAB DIRECTOR Unavailable Allergies Active Allergy Reactions Criticality Noted Date Comments Bioflavonoids Unknown/Patient and Family Unable to Define Medium 01/18/2019 Crafton Rash/Dermatitis Low 12/16/2018 Corylus Rash/Dermatitis Low 12/16/2018 [...] 02/02/2019 Overview (02/13/2019): Treated in fall in [facility] for Dx of Syphilis w reported titer of 1:32. Titer in Epic is 1:2 Dec 03 2018. Malingering 01/20/2019 Overview (02/02/2019): Overview: Patient has been at [facility] ED daily for past 3 days (01/18/19-01/20/19) for pain related issues and frequenting other hospital EDs. Made suicidal comment in setting of not wanting to be discharged to a [facility]. Currently homeless. Immunizations Immunization Administration Dates Next [...] CMIA Nonreactive Nonreactive 02/05/2025 11:22 AM EDT [facility] Comment: Results show no [...] MD LAB BLOOD ORDERABLES Final R esult [facility] [address] [place] [address], * Hepatitis C Virus (HCV) Antibody (2019 [...] a test for HCV RNA (test code 47242) is suggested. For additional information please refer to http://education.Chip Estimate/faq/CFD38c2 (This link is being provided for informational/ educational purposes only.) Blood specimen (specimen) 2019 9:24 AM EDT 2019 9:27 AM EDT Narrative [facility] - 01/25/2019 11:09 PM EDT FASTING:NO FASTING: NO Resulting Agency Comment Performing Organization Information: Site ID: [id number] Name: [facility] Address: [address] [place] [address], [place] [address] Director: Jovanni Sinclair MD us Stacy TROY LAB BLOOD ORDERABLES Final Resu lt [facility] [address], [place] [address] from Last 3 Months or Most Recently Relevant to Health Maintenance Care Teams Wearing Apparel Presser Relationship Specialty Start Date End Date Pcp, No PCP - General General Medicine 11/19/19 Jayna Rosario LPC [address] [place] [address] Senior Product Marketing Manager Clinical Social Work 10/06/24
--- OUTSIDE RECORDS SUMMARY | 2025-07-11 15:42 | XMS_ITS | Encounter Summary ---
Author Organization Formerly [facility] Address [address] [place] [address] Care Team Providers Care Clinical Rehab Specialist Name Role Phone Stacy Tello Primary Care Provider Evelia AldrichW Unavailable [phone] Pcp, No Primary Care Provider UnavailJayna Gallegos LPC Unavailable [phone] Encounter Details Date Type Department Care Team (Late st Contact Info) Description 03/23/2019 Prep for Surgery [facility] [address] [phone] Macy Ohara MD [address] [place] [phone] Social History Tobacco Use Types Packs/Day Years [...] on filedocumented in this encounter Care Teams Clinical Rehab Specialist Relationship Specialty Start Date End Date Stacy Tello PA [address] [facility] [address] [place] [address] PCP - General Internal Medicine 01/24/19 11/03/19 Pcp, No PCP - General General Medicine 11/19/19 Evelia Aldrich LCSW Needs valid address Grain Farmworker Social Work 01/26/19 02/09/22 Jayna Rosraio LPC [address] [place] [address] Grain Farmworker Clinical Social Work 10/06/24 documented as of this encounter
--- OUTSIDE RECORDS SUMMARY | 2025-07-11 15:42 | XMS_ITS | Encounter Summary ---
Author Organization [facility] Address [address] [place] [address] Care Team Providers Care Rag Cutting Machine Operator Name Role Phone Stacy Tello Primary Care Provider [phone] Evelia AldrichW Unavailable [phone] Pcp, No Primary Care Provider UnavailJayna Gallegos LPC Unavailable Encounter Details Date Type Department Care Team (Late st Contact Info) Description 03/22/2019 Scanned Document [address] [phone] Provider, Ry, [address] [place] [address] Social History Tobacco Use Types Packs/Day Years [...] on filedocumented in this encounter Care Teams Rag Cutting Machine Operator Relationship Specialty Start Date End Date Stacy Tello PA [address] [facility] [address] [place] [address] PCP - General Internal Medicine 01/24/19 11/03/19 Pcp, No PCP - General General Medicine 11/19/19 Evelia Aldrich LCSW Needs valid address Ethanol Quality Leader Social Work 01/26/19 02/09/22 Jayna Rosario LPC [address] [place] [address] Ethanol Quality Leader Clinical Social Work 10/06/24 documented as of this encounter
--- OUTSIDE RECORDS SUMMARY | 2025-07-11 15:42 | XMS_ITS | Encounter Summary ---
Author Organization [facility] Address [address] [place] [address] Care Team Providers Care Computing Tutor Name Role Phone Stacy Tello Primary Care Provider Evelia AldrichW Unavailable [phone] Pcp, No Primary Care Provider UnavailJayna Gallegos LPC Unavailable [phone] Encounter Details Date Type Department Care Team (Late st Contact Info) Description 03/23/2019 Prep for Surgery [facility] [address] [phone] Macy Ohara MD [address] [place] [phone] Social History Tobacco Use Types Packs/Day Years [...] on filedocumented in this encounter Care Teams Computing Tutor Relationship Specialty Start Date End Date Stacy Tello PA [address] [facility] [address] [place] [address] PCP - General Internal Medicine 01/24/19 11/03/19 Pcp, No PCP - General General Medicine 11/19/19 Evelia Aldrich LCSW Needs valid address Water Softener Servicer And Installer Social Work 01/26/19 02/09/22 Jayna Rosario LPC [address] [place] [address] Water Softener Servicer And Installer Clinical Social Work 10/06/24 documented as of this encounter
--- OUTSIDE RECORDS SUMMARY | 2025-07-11 15:42 | XMS_ITS | Clinical Summary ---
Author Organization [facility] [address] [place] [phone] Phone Care Team Providers Care Cell Geneticist Name Role Phone Physician, Pcp Unknown Primary Care Provider Maritza vailable Allergies Active Allergy Reactions Criticality Noted Date Comments Apple 03/23/2024 Aspirin 03/23/2024 Does not know Industry [employer] Derivatives 03/23/2024 Acetaminophen-Caffeine 03/23/2024 Pain and [...] Date Type Department Care Team Description 07/11/2025 3:38 PM EDT Hospital Encounter [facility] Xray [address] [place] [phone] Pain in left hand 07/11/2025 12:30 AM EDT - 07/11/2025 1:09 AM EDT Emergency [facility] Emergency [address] [place] [phone] Faraz Stroud MD Discharge Disposition: Home or Self Care 07/10/2025 4:27 PM EDT - 07/10/2025 6:55 PM EDT Emergency [facility] Emergency [address] [place] [phone] Faraz Stroud MD Syncope and collapse (Primary Dx); Viral illness; STI (sexually transmitted infection) Discharge Disposition: Left Against Medical Advice 05/31/2025 1:30 PM EDT Office Visit [facility] - [address] [phone] Erendira Cook NP Acute right-sided thoracic back [...] Description 07/11/2025 3:38 PM EDT Hospital Encounter [facility] Xray [address] [place] [phone] Pain in left hand 07/18/2025 7:00 AM EDT Evaluation [facility] Rehabilitation [facility] [address] [phone] Jim Tineo, PT Health Maintenance Due Date [...] ECG 12-LEAD STAT 07/10/2025 6:25 PM EDT RAPID PLASMA REAGIN WITH REFLEX TO TITER STAT 07/10/2025 5:38 PM EDT MAGNESIUM STAT Add-on 07/10/2025 5:38 PM EDT BASIC METABOLIC PANEL STAT Add-on 07/10/2025 5:38 PM EDT TREPONEMA PALLIDUM ANTIBODY WITH REFLEX TO RPR AND PARTICLE AGGLUTINATION STAT 07/10/2025 5:38 PM EDT CHLAMYDIA TRACHOMATIS AND NEISSERIA GONORRHOEAE PCR STAT 07/10/2025 5:30 PM EDT [id number], RSV, FLU A AND B QUALITATIVE RT-PCR, INTERNAL LAB STAT 07/10/2025 5:30 PM EDT from Last 3 Months Results * ECG-Annotated (07/11/2025) us Provider Onbase MD ECG ORDERABLES Final Result * 12-Lead ECG (07/10/2025 6:25 PM EDT) Ventricular Rate ECG 78 BPM GEMUSE Atrial Rate 78 BPM GEMUSE P-R Interval 96 ms GEMUSE QRS Duration 92 ms GEMUSE Q-T Interval 388 ms GEMUSE QTc 442 ms GEMUSE P Wave Mantador 33 degrees GEMUSE R [place] 56 degrees GEMUSE T [place] 51 degrees GEMUSE ECG Interpretation Poor data quality, interpretation may be adversely affected Sinus rhythm with short CA Minimal voltage criteria for LVH, may be normal variant Borderline ECG No previous ECGs available Confirmed by Luis Felipe GRACIA YUFENG ([id number]) on 07/10/2025 7:42:24 PM GEMUSE 07/10/2025 6:25 PM EDT 07/10/2025 7:42 PM EDT us Faraz Stroud MD ECG ORDERABLES Final Result Performing Organization Address City/[facility] Co de Phone Number ELIZABETHUSE * (ABNORMAL) Treponema pallidum antibody with reflex to RPR and particle agglutination (07/10/2025 5:38 PM EDT) Pathologist [facility] T. Pallidum Antibodies Positive( A) Negative LAB CHEMISTRY METHOD 07/10/2025 6:55 PM EDT [facility] Blood Venous blood specimen / Unknown Venipuncture / Unknown 07/10/2025 5:38 PM EDT 07/10/2025 6:00 PM EDT us Faraz Stroud MD LAB BLOOD ORDERABLES Final Resul t [facility] [address] [place] [address], [place] [phone] * Rapid plasma reagin with reflex to titer (07/10/2025 5:38 PM EDT) Pathologist [facility] RPR Nonreactive Nonreactive 07/11/2025 11:09 AM EDT [facility] Blood Venous blood specimen / Unknown Venipuncture / Unknown 07/10/2025 5:38 PM EDT 07/10/2025 6:55 PM EDT us Faraz Stroud MD LAB BLOOD ORDERABLES Final Resul t Performing Organization Address City/[facility]/ZIP Co de Phone Number [facility] [address] [place] [address], [place] [phone] * Magnesium (07/10/2025 5:38 PM EDT) Pathologist [facility] Magnesium 2.1 1.9 - 2.6 mg/dL LAB CHEMISTRY METHOD 07/10/2025 7:06 PM EDT [facility] Blood Venous blood specimen / Unknown Venipuncture / Unknown 07/10/2025 5:38 PM EDT 07/10/2025 6:00 PM EDT us Faraz Stroud MD LAB BLOOD ORDERABLES Final Resul t Performing Organization Address [facility]/ZIP Co de Phone Number [facility] [address] [place] [address], [place] [phone] * Basic Metabolic Panel (BMP) (07/10/2025 5:38 PM EDT) [facility] Sodium 136 133 - 145 mmol/L LAB CHEMISTRY METHOD 07/10/2025 7:06 PM [facility] Potassium 3.9 3.5 - 5.5 mmol/L LAB CHEMISTRY METHOD 07/10/2025 7:06 PM [facility] Chloride 105 96 - 110 mmol/L LAB CHEMISTRY METHOD 07/10/2025 7:06 PM [facility] CO2 25 21 - 32 mmol/L LAB CHEMISTRY METHOD 07/10/2025 7:06 PM [facility] Anion Gap 6 3 - 11 LAB CHEMISTRY METHOD 07/10/2025 7:06 PM [facility] Glucose 87 70 - 100 mg/dL LAB CHEMISTRY METHOD 07/10/2025 7:06 PM [facility] BUN 13 5 - 25 mg/dL LAB CHEMISTRY METHOD 07/10/2025 7:06 PM EDT [facility] Creatinine 1.18 0.70 - 1.30 mg/dL LAB CHEMISTRY METHOD 07/10/2025 7:06 PM EDT [facility] eGFR 87 >=60 mL/min/1. 73m2 LAB CHEMISTRY METHOD 07/10/2025 7:06 PM EDT [facility] Comment:Calculation based on the Chronic Kidney Disease Epidemiology Collaboration (CKD-EPI) equation refit without adjustment for race. BUN/Creatinine Ratio 11.0 LAB CHEMISTRY METHOD 07/10/2025 7:06 PM EDT [facility] Calcium 9.7 8.5 - 10.5 mg/dL LAB CHEMISTRY METHOD 07/10/2025 7:06 PM EDT [facility] Blood Venous blood specimen / Unknown Venipuncture / Unknown 07/10/2025 5:38 PM EDT 07/10/2025 6:00 PM EDT us Faraz Stroud MD LAB BLOOD ORDERABLES Final Resul t [facility] [address] [place] [address], * [id number], RSV, Influenza A and B qualitative RT-PCR (07/10/2025 5:30 PM EDT) Influenza A PCR Not Detected Not Detected LAB MICROBIOLOGY METHOD 07/10/2025 6:21 PM EDT [facility] Influenza B PCR Not Detected Not Detected LAB MICROBIOLOGY METHOD 07/10/2025 6:21 PM EDT [facility] RSV PCR Not Detected Not Detected LAB MICROBIOLOGY METHOD 07/10/2025 6:21 PM EDT [facility] SARS COV-2 Not Detected Not Detected LAB MICROBIOLOGY METHOD 07/10/2025 6:21 PM EDT [facility] Swab Nasopharyngeal structure / Unknown Non-blood Collection / Unknown 07/10/2025 5:30 PM EDT 07/10/2025 5:38 PM EDT Narrative [facility] - 07/10/2025 6:21 PM EDT Disclaimer: Testing was performed using the [employer] GeneXpert Xpress SARS-CoV-2 _Flu_RSV PLUS PCR assay. [...] for Healthcare providers can be found at https://www.fda.gov/media/455055/download. Fact sheet for Healthcare patients can be found at https://www.fda.gov/media/768442/download. Faraz Stroud MD LAB MICROBIOLOGY - GENERAL ORDER CASEY Final Result [facility] [address] [place] [address], * Chlamydia trachomatis and Neisseria gonorrhoeae molecular study (07/10/2025 5:30 PM EDT) Neisseria gonorrhoeae PCR Negative Negative LAB MOLECULAR DIAGNOSTICS METHOD 07/11/2025 10:40 AM EDT [facility] Chlamydia trachomatis PCR Negative Negative LAB MOLECULAR DIAGNOSTICS METHOD 07/11/2025 10:40 AM EDT [facility] Urine Urine specimen from urethra / Unknown Non-blood Collection / Unknown 07/10/2025 5:30 PM EDT 07/10/2025 5:38 PM EDT us Faraz Stroud MD LAB MICROBIOLOGY - GENERAL ORDER CASEY Final Result [facility] ([facility] [[email or web address] [address] [place] [address], [place] [phone] from Last [address] [place] [address] [address] [employer] Care Teams Cell Geneticist Relationship Specialty Start Date End Date Physician, Pcp Unknown PCP - General 07/10/25
--- OUTSIDE RECORDS SUMMARY | 2025-07-11 15:42 | XMS_ITS | Encounter Summary ---
Author Organization [facility] Address [address] [place] [address] Care Team Providers Care Parts Advisor Name Role Phone Evelia Aldrich LCSW Unavailable [phone] Pcp, No Primary Care Provider Unavailabl e Jayna Rosario LPC Unavailable Encounter Details Date Type Department Care Team (Late st Contact Info) Description 12/18/2019 Scanned Document [facility] EMERGENCY MED SCAN Emergency Medicine, Scan Social [...] on filedocumented in this encounter Care Teams Parts Advisor Relationship Specialty Start Date End Date Pcp, No PCP - General General Medicine 11/19/19 Evelia Aldrich LCSW Needs valid address Client Experience Manager Social Work 01/26/19 02/09/22 Jayna Rosario LPC [address] [place] [address] Client Experience Manager Clinical Social Work 10/06/24 documented as of this encounter
--- OUTSIDE RECORDS SUMMARY | 2025-07-11 15:42 | XMS_ITS | Encounter Summary ---
Author Organization [facility] Address [address] [place] [address] Care Team Providers Care Head Of Science Name Role Phone Stacy Tello Primary Care Provider [phone] Evelia AldrichW Unavailable [phone] Pcp, No Primary Care Provider UnavailJayna Gallegos LPC Unavailable Encounter Details Date Type Department Care Team (Late st Contact Info) Description 01/27/2019 Scanned Document [address] [phone] Provider, Ry, [address] [place] [address] Social History Tobacco Use Types Packs/Day Years [...] on filedocumented in this encounter Care Teams Head Of Science Relationship Specialty Start Date End Date Stacy Tello PA [address] [facility] [address] [place] [address] PCP - General Internal Medicine 01/24/19 11/03/19 Pcp, No PCP - General General Medicine 11/19/19 Evelia Aldrich LCSW Needs valid address Quantitative Analyst Developer Social Work 01/26/19 02/09/22 Jayna Rosario LPC [address] [place] [address] Quantitative Analyst Developer Clinical Social Work 10/06/24 documented as of this encounter
== END 2025-07-11 13:41 | disposition home or self-care (01) ==
LOC: HO.HMCFMS 12:45
PROVIDERS: PCP Student in an Organized Health Care Education/Training Program; Visit Provider Student in an Organized Health Care Education/Training Program
DX: J45.20 Mild intermittent asthma, uncomplicated (principal); F31.9 Bipolar disorder, unspecified; Z59.00 Homelessness unspecified; T14.91XA Suicide attempt, initial encounter; F43.25 Adjustment disorder with mixed disturbance of emotions and conduct; G47.411 Narcolepsy with cataplexy; M79.642 Pain in left hand; Z72.52 High risk homosexual behavior

== ENCOUNTER 2025-07-11 13:44 | Outpatient (REF) | payer OTHER, SELFPAY ==
--- OUTSIDE RECORDS SUMMARY | 2025-07-11 16:48 | XMS_ITS | Clinical Summary ---
Author Organization [employer] Address [address] [place] [address] Care Team Providers Care Retouching Operator Name Role Phone Mini Encarnacion GELA Primary Care Provider [phone] Active Problems Problem Noted Date Diagnosed Date [...] A OP therapy referral was made to [facility] on 08/23/2023. At this time Fidencio Huitron meets criteria for Visit Diagnoses: Problem List Items Addressed This Visit Other Anxiety Depressive disorder Housing lack Homelessness Hallucinations Patient ready to address current needs Yes Strengths include patient is in preparation stage PLAN: 1. Follow up with [facility]: Recommended for follow-up: As needed 2. Patient goal is obtain stable housing and improve his mental health 3. Behavioral Recommendations a. Engage in OP therapy once established b. Monitor symptoms c. Reach out to [facility] for additional support as needed Assessment & [...] stage. PLAN: 1. Follow up with [facility]: Recommended for follow-up: Scheduled 2. Patient goal is to be connected with services/resources that will address all needs 3. Behavioral Recommendations a. Attend follow-up appointment b. Reach out to [facility] for additional support Immunizations Immunization Administration Dates [...] with others, in a hotel, in a alf, living outside on the street, on a [...] Screening Completed 08/19/2023, 020 HIV Screening Completed 02/04/2025, 07/2024, 08/19/2023, Additional history exists Hepatitis A Vaccines Aged [...] 3:20 PM EDT) HIV AB/AG Nonreactive Nonreactive [facility] Comment:HIV-1 p24 Ag and/or HIV-1/HIV-2 Ab not detected.A test result that is nonreactive does not exclude thepossibility of exposure to or infection with HIV-1 and/orHIV-2. Nonreactive results in this assay for individualswith prior exposure to HIV-1 and/or HIV-2 may be due toantigen and antibody levels that are below the limit ofdetection of this assay.The [employer] HIV Ag/Ab Combo assay result andsupplemental assay results should be interpreted inconjunction with the patient's clinical presentation,history and other laboratory results. If the results areinconsistent with clinical evidence, additional testing issuggested to confirm the result. 08/19/2023 3:20 PM EDT 08/19/2023 3:54 PM EDT Mini Encarnacion [facility] BLOOD ORDERABLES Final Resul t Performing Organization Address [facility] Co de Phone Number [facility] [address] [place] [address] [phone] * Hepatitis C Antibody with Reflex to HCV, RNA, Quantitative, Real-Time PCR (08/19/2023 3:20 PM EDT) Hepatitis C Antibody Nonreactive Nonreactive [facility] Comment:Antibodies to HCV no t detected; does not exclude early acuteHCV infection. Blood Venous blood specimen / Unknown 08/19/2023 3:20 PM EDT 08/19/2023 3:54 PM EDT Mini Encarnacion [facility] BLOOD ORDERABLES Final Resul t Performing Organization Address [facility] Co de Phone Number [facility] [address] [place] [phone] from Last 3 Months or Most Recently Relevant to Health Maintenance [facility] [employer] Care Teams Retouching Operator Relationship Specialty Start Date End Date Mini Encarnacion ANP [address] [place] [phone] PCP - General Family Medicine 07/19/23
[2025-07-11 18:15] LABS: MANUAL DIFF FLAG NO
[2025-07-11 18:38] LABS: Hematocrit 46.6 % (42.0-52.0); Hemoglobin 15.4 g/dl (14.0-18.0); Imm Gran Abs Auto 0.01 X10*3/uL (0.00-0.03); Imm Gran Pct Auto 0.3 % (0.0-0.4); Lymphocytes Absolute Auto 1.8 X10*3/uL (1.2-4.9); Mean Corpuscular HGB Conc 33.0 g/dl (31.0-36.0); Mean Corpuscular Hemoglobin 29.3 pg (27.0-33.0); Mean Corpuscular Volume 88.6 fL (80.0-98.0); NRBC Abs Auto 0.000 X10*3/uL (0.0-0.012); NRBC Pct Auto 0.0 /100WBC (0.0-0.2); Platelet Count 244 X10*3/uL (160-400); Red Blood Count 5.26 X10*6/uL (4.60-5.80); White Blood Count 3.8 X10*3/uL (4.8-10.8)
[2025-07-11 18:41] LABS: Appearance Urine Clear; Glucose Urine UA Negative (Negative); PH 6.5 (5.0-9.0); Specific Gravity - Urine 1.025 (1.005-1.025)
[2025-07-11 18:58] LABS: Alanine Aminotransferase 25 U/L (0-40); Albumin Level 5.2 g/dL (3.5-5.0); Alkaline Phosphatase 50 U/L (39-117); Anion Gap 13 (12-20); Aspartate Amino Transferase 59 U/L (5-37); Blood Urea Nitrogen 12 mg/dL (9-16); Calcium 9.3 mg/dL (8.4-10.2); Carbon Dioxide 24 mmol/L (22-29); Chloride 107 mmol/L (96-108); Cholesterol 131 mg/dL (<200); Estimated Glomerular Filt Rate > 60; HDL Cholesterol 54 mg/dL (>40); Magnesium 2.3 mg/dL (1.6-2.6); Potassium 4.2 mmol/L (3.3-5.1); Sodium 140 mmol/L (135-145); Total Protein 7.8 g/dL (6.5-8.0); Triglycerides 58 mg/dL (<150)
[2025-07-12 00:22] LABS: CT PCR Urine NOT DETECTED (Not Detect.); NG PCR Urine NOT DETECTED (Not Detect.)
[2025-07-12 07:31] LABS: Hemoglobin A1C 147.0352 umol/L; Total Hemoglobin (HGBA1C) 4057.3720 umol/L
[2025-07-12 08:37] LABS: HBS Num1 318.65 mIU/mL (0-7.99); HBsAGNum1 0.45 S/CO (0.00-0.99); HIV Num 1 0.05 S/CO (0.00-0.99); Hepatitis B Surface Antigen Negative (Negative); ~HepC Num1 0.09 S/CO (0.00-0.79); ~Hepatitis B Surface Antibody REACTIVE (Nonreactive); ~Hepatitis C Antibody Nonreactive (Nonreactive)
[2025-07-12 08:47] LABS: Syphilis Screen Reactive (Nonreactive)
[2025-07-15 09:39] LABS: VITAMIN D (1,25 OH) D3 56 pg/mL; Vit D (1,25-Dihydroxy) Total 56 pg/mL (18-72); Vitamin D (1,25 OH) D2 <8 pg/mL
[2025-07-16 19:09] LABS: Chlamydia Trachomatis IgA <1:16 titer (<1:16)
[2025-07-19 10:10] LABS: T.Pallidum Particle Agg Test Reactive (Nonreactive)
== END 2025-07-11 13:45 | disposition home or self-care (01) ==
LOC: HO.HKASLDS 13:44
PROVIDERS: Visit Provider Student in an Organized Health Care Education/Training Program
DX: Z76.89 Persons encountering health services in other specified circumstances (principal); Z01.84 Encounter for antibody response examination; Z11.3 Encounter for screening for infections with a predominantly sexual mode of transmission; Z11.8 Encounter for screening for other infectious and parasitic diseases; Z11.4 Encounter for screening for human immunodeficiency virus [HIV]
CPT/HCPCS: 36415; 80053; 80061; 81003; 82652; 83036; 83735; 85025; 86592; 86631; 86632; 86706; 86780; 86803; 87340; 87389; 87491; 87591